=== PATIENT | female | born 1945 | race Caucasian/White ===

== ENCOUNTER 2017-05-29 10:48 | Emergency (ER) | payer OTHER, MEDICAID ==
[2017-05-29 10:54] VITALS: BP 106/57; BMI 24.5
--- NOTE | 2017-05-29 12:39 | DR.GENAD ---
HPI - PCP Primary Care Physician: ERIC - Complaint/Symptoms Chief Complaint Doctors Comments: Patient presents with c/o pain right lower chest. Denies fever. She has a hsitory of COPD, home oxygen, denies fever. Chief Complaint:: " A WEEK AGO PT HAS BEEN COUGHING AND HURTING IN HER SIDE, NOT EATING, PT WEARS O2 AT 2LITTERS - Source History Provided: Patient - Mode of Arrival Mode of Arrival: Wheelchair - Timing Onset of Chief Complaint: 05/22/17 PMH - PMH Past Medical History: Yes Past Medical History: COPD, Hypertension Past Medical History Comment: Bhupinder-FIB Past Surgical History: Yes Surgical History: Appendectomy, Cholecystectomy - Family History History of Family Medical Conditions: No - Social History Does patient currently use any type of tobacco product: Yes Have you used tobacco products in the last 12 months: Yes Type of Tobacco Use: Cigarettes How many years tobacco product used: 50 Does any household member use tobacco: No Alcohol Use: None Do you use any recreational Drugs:: No Lives With: Family Lives Where: Home - infectious screening In the last 2 months have you had wt loss of >10#?: NO Have you had fever, night sweats or hemotysis?: No Have you traveled outside the country in the last 6 months?: No Isolation: Standard ROS - Review of Systems Eyes: No Symptoms Reported ENTM: No Symptoms Reported Respiratoy: No Symptoms Reported Cardiovascular: No Symptoms Reported Gastrointestinal/Abdominal: No Symptoms Reported Genitourinary: No Symptoms Reported Neurological: No Symptoms Reported Musculoskeletal: Chest wall Integumentary: No Symptoms Reported Hematologic/Lymphatic: No Symptoms Reported Endocrine: No Symptoms Reported Psychiatric: No Symptoms Reported All Other Systems: Reviewed and Negative PE - Vital Signs Vitals: Temperature 99.1 F Pulse Rate 105 Respiratory Rate 20 Blood Pressure 106/57 O2 Sat by Pulse Oximetry 90 - General Limitations: No Limitations General Appearance: Alert, In No Apparent Distress - Head Head Exam: Normal Inspection, Atraumatic - Eyes Eye exam: Normal Appearance, PERRL, EOMI - ENT ENT Exam: Normal Exam External Ear Exam: Normal External Inspection TM/Canal Exam: Bilateral Normal Nose Exam: Normal Nose Exam Mouth Exam: Normal Inspection Throat Exam: Normal Inspection - Neck Neck Exam: Normal Inspection - Chest Chest Inspection: Normal Inspection - Respiratory Respiratory Exam: Normal Lung Sounds Bilat Respiratory Exam: Bilateral Clear to Auscultation - Cardiovascular Cardiovascular Exam: Regular Rate, Normal Rhythm - Abdominal Exam Abdominal Exam: Normal Inspection, Normal Bowel Sounds Abdominal Tenderness: negative: RUQ, RLQ, LUQ, LLQ, Epigastrium, Suprapubic, Diffuse, Mild, Moderate, Severe, Other - Extremities Extremities Exam: Normal Inspection - Back Back Exam: Normal Inspection - Neurologic Neurological Exam: Alert, Oriented X3, CN II-XII Intact - Psychiatric Psychiatric Exam: Normal Affect Course - Treatment Treatment: I discussed results of CXR of pneumonia patient refused admission ROR - Labs Reviewed Result Diagrams: 05/29/17 12:50 05/29/17 12:50 Laboratory: WBC 17.6 X10^3/uL (3.6-10.0) H 05/29/17 12:50 RBC 4.54 X10^6/uL (3.5-5.4) 05/29/17 12:50 Hgb 14.3 g/dL (12.0-16.0) 05/29/17 12:50 Hct 42.5 % (36.0-47.0) 05/29/17 12:50 MCV 93.7 fL (80.0-100.0) 05/29/17 12:50 MCH 31.5 pg (27.0-34.0) 05/29/17 12:50 MCHC 33.6 g/dL (33.0-35.0) 05/29/17 12:50 RDW 13.5 % (11.6-16.5) 05/29/17 12:50 Plt Count 227 X10^3/uL (150.0-450.0) 05/29/17 12:50 MPV 8.5 fL (7.4-11.0) 05/29/17 12:50 Neut % 81.7 % (42.0-75.0) H 05/29/17 12:50 Lymph % 9.3 % (21.0-51.0) L 05/29/17 12:50 [place] % 8.2 % (0.0-13.0) 05/29/17 12:50 Eos % 0.1 % (0.9-2.9) L 05/29/17 12:50 Baso % 0.7 % (0.2-1.0) 05/29/17 12:50 Neut # 14.4 x10^3/uL (2.2-4.8) H 05/29/17 12:50 Lymph # 1.6 X10^3/uL (1.3-2.9) 05/29/17 12:50 [place] # 1.4 x10^3/uL (0.3-0.8) H 05/29/17 12:50 Eos # 0.0 x10^3/uL (0.0-0.2) 05/29/17 12:50 Baso # 0.1 X10^3/uL (0.0-0.1) 05/29/17 12:50 Absolute Nucleated RBC 0.1 /100WBC 05/29/17 12:50 Sodium 137 mmol/L (136-145) 05/29/17 12:50 Corrected Sodium TNP 05/29/17 12:50 Potassium 3.8 mmol/L (3.5-5.1) 05/29/17 12:50 Chloride 101 mmol/L (98-107) 05/29/17 12:50 Carbon Dioxide 33.8 mmol/L (21-32) H 05/29/17 12:50 BUN 14 mg/dL (7-18) 05/29/17 12:50 Creatinine 0.60 mg/dL (0.55-1.02) 05/29/17 12:50 Est GFR (MDRD) Af Amer > 60 (>60) 05/29/17 12:50 Est GFR (MDRD) Non-Af > 60 (>60) 05/29/17 12:50 Glucose 91 mg/dL (65-99) 05/29/17 12:50 Calcium 9.0 mg/dL (8.5-10.1) 05/29/17 12:50 - XRAY XRAY Interpreted by: Radiologist (Chest CT: Examination of the mediastinum demonstrated no evidence for mediastinal masses, enlarged lymphadenopathy, or enlarged hilar adenopathy. Nonenlarged medicastinal nodes are present. No pleural effusions are identified. Those portions of the upper abdominal organs visualized were within normal limits to the limitations of an unenhanced examination. No chest wall or axillary abnormality is identified. The lungs are hyperinflated consistend with COPD. Changes of centrilobular emphysema are present diffusely. Alveolar infiltrate is present in the right lower lobe. There is also some consolidation atelectasis posteriorly in the right lower lobe. Patchy peribronchial infiltrates are present in the right middle lobe and lingula. These findigns are most consistent with multifocal neumonia and follow up until complete resolution is recommended. Follow up with CT is recommended. No nodules,masses or bronchiectasis is identified.) - Diagnosis Discharge Problem: Multifocal pneumonia COPD (chronic obstructive pulmonary disease) Qualifiers: COPD type: unspecified COPD Qualified Code(s): J44.9 - Chronic obstructive pulmonary disease, unspecified - Discharge Plan Condition: Stable - Follow ups/Referrals Follow ups/Referrals: NFD,None [Primary Care Provider] - 3 days - Instructions
[2017-05-29 12:58] LABS: BASOPHILS # (AUTO) 0.1 X10^3/uL (0.0-0.1); BASOPHILS % (AUTO) 0.7 % (0.2-1.0); EOSINOPHILS % (AUTO) 0.1 % (0.9-2.9); HEMATOCRIT 42.5 % (36.0-47.0); HEMOGLOBIN 14.3 g/dL (12.0-16.0); LYMPHOCYTES # (AUTO) 1.6 X10^3/uL (1.3-2.9); LYMPHOCYTES % (AUTO) 9.3 % (21.0-51.0); MEAN CORPUSCULAR HEMOGLOBIN 31.5 pg (27.0-34.0); MEAN CORPUSCULAR HGB CONC 33.6 g/dL (33.0-35.0); MEAN CORPUSCULAR VOLUME 93.7 fL (80.0-100.0); MEAN PLATELET VOLUME 8.5 fL (7.4-11.0); MONOCYTES # (AUTO) 1.4 x10^3/uL (0.3-0.8); MONOCYTES % (AUTO) 8.2 % (0.0-13.0); NEUTROPHILS # (AUTO) 14.4 x10^3/uL (2.2-4.8); NEUTROPHILS % (AUTO) 81.7 % (42.0-75.0); PLATELET COUNT 227 X10^3/uL (150.0-450.0); RED BLOOD COUNT 4.54 X10^6/uL (3.5-5.4); RED CELL DISTRIBUTION WIDTH 13.5 % (11.6-16.5); WHITE BLOOD COUNT 17.6 X10^3/uL (3.6-10.0)
[2017-05-29 13:03] LABS: BLOOD UREA NITROGEN 14 mg/dL (7-18); CARBON DIOXIDE 33.8 mmol/L (21-32); CHLORIDE 101 mmol/L (98-107); SODIUM 137 mmol/L (136-145); eGFR BLACK RACES > 60 (>60); eGFR NON BLACK RACES > 60 (>60)
--- NOTE | 2017-05-29 13:32 | RAD ---
HISTORY: Chest and right-sided pain Study: Two views chest Comparison: None Findings: The trachea is midline. The cardiac silhouette is unremarkable. Diffuse chronic appearing interstit ial changes are again seen within both lungs. There is flattening of the hemidiaphragms with an incre ase in retrosternal airspace. A focal somewhat ill-defined area of opacification is seen within the m id right lung and may represent infiltrate but remains indeterminate. There is questionable slight ri ght hilar prominence as well. Recommend short interval followup chest radiographs and or CT of the ch est for further evaluation and to exclude underlying nodule/mass. The aortic knob is partially calcif ied. IMPRESSION: 1. Ill-defined focal opacification within the mid right lung as discussed above. 2. Radiographic findings of COPD with diffuse chronic appearing interstitial changes. Reported By:
[2017-05-29] MEDS ORDERED: NORCO 10/325 TAB PO ONE (13:54)
[2017-05-29] MEDS ORDERED: NORCO 10/325 TAB ONE (13:57)
--- NOTE | 2017-05-29 14:38 | CT ---
HISTORY: Follow up abnormal chest x-ray Study: CT chest without contrast Comparison: Plain chest x-ray same date Technique: Axial non contrast images with coronal and sagittal reformats. Dose reduction procedures w ere used with MA/kv adjusted for body size. Findings: Examination the mediastinum demonstrated no evidence for mediastinal masses, enlarged lymphadenopathy , or enlarged hilar adenopathy. Nonenlarged mediastinal nodes are present. No pleural effusions are i dentified. Those portions of the upper abdominal organs visualized were within normal limits to the l imitations of an unenhanced examination. No chest wall or axillary abnormality is identified. The roseanne gs are hyperinflated consistent with COPD. Changes of centrilobular emphysema are present diffusely. Alveolar infiltrate is present in the right lower lobe. There is also some consolidation atelectasis posteriorly in the right lower lobe. Patchy peribronchial infiltrates are present in the right middle lobe and lingula. These findings are most consistent with multifocal pneumonia and follow up until c omplete resolution is recommended. Follow up with CT is recommended. No nodules, masses, or bronchiec tasis is identified. There is peribronchial thickening consistent with bronchitis. IMPRESSION: Emphysematous COPD Multifocal pneumonia as described above which should be followed until complete resolution. Peribronchial thickening consistent with bronchitis Reported By:
== END 2017-05-29 15:18 | disposition home or self-care (01) ==
LOC: ER 11:11
DX: J18.8 Other pneumonia, unspecified organism (principal); J44.9 Chronic obstructive pulmonary disease, unspecified
CPT/HCPCS: 36415; 71020; 71250; 80048; 85025; 99283

== ENCOUNTER → 2017-08-22 | Outpatient (CLI) | payer OTHER, MEDICAID ==
[2017-08-22 10:30] LABS: ABG BASE EXCESS 10.5 mmol/L (-2.0-2.0)
--- NOTE | 2017-08-22 15:23 | CT ---
HISTORY: Pulmonary nodule. Study: CT chest without contrast Comparison: CT chest dated May 29, 2017. Technique: Multiple axial images of the chest were obtained from the thoracic inlet to the upper abdo men after the administration of IV contrast. MIP images were obtained. Dose reduction techniques incl uding Automated Exposure Control (AEC) and adjustment of mA and kV were utilized. Findings: The mediastinum does not demonstrate significant pathological lymphadenopathy. There is no paracardi al effusion observed. The thoracic aorta is normal in its contour without evidence for aneurysmal di latation. Mild cardiomegaly and vascular calcifications of the coronary arteries and thoracic aorta a ppear unchanged. Biapical scarring. Mild/moderate centrilobular emphysematous changes. 4 mm subpleural right upper lob e pulmonary nodule (series 3, image 28) appears unchanged. No obvious new pulmonary nodule, mass, ple ural effusion, focal consolidation, or pneumothorax. Previously seen multifocal pneumonia is resolved . The upper abdominal structures appear unchanged. The osseous structures appear unchanged. No aggres sive osseous lesions. IMPRESSION: 1. No evidence of acute thoracic pathology. 2. Stable appearing right upper lobe 4 mm pulmonary nodule. Reported By:
== END ==
LOC: RAD 09:36
PROVIDERS: ATTEND Internal Medicine Pulmonary Disease
DX: J44.1 Chronic obstructive pulmonary disease with (acute) exacerbation (principal); R91.1 Solitary pulmonary nodule
CPT/HCPCS: 36600; 71250; 82803

== ENCOUNTER 2018-12-11 13:57 | Inpatient (IN) ==
[2018-12-11 14:22] LABS: ABG BASE EXCESS 7.2 mmol/L (-2.0-2.0)
[2018-12-11 14:23] LABS: ABG HCO3 34.5 mmol/L (22-26)
[2018-12-11 14:39] LABS: BASOPHILS % (AUTO) 0.2 % (0.2-1.0); EOSINOPHILS # (AUTO) 0.1 x10^3/uL (0.0-0.2); EOSINOPHILS % (AUTO) 1.1 % (0.9-2.9); HEMATOCRIT 36.5 % (36.0-47.0); HEMOGLOBIN 12.3 g/dL (12.0-16.0); LYMPHOCYTES # (AUTO) 0.4 X10^3/uL (1.3-2.9); LYMPHOCYTES % (AUTO) 4.3 % (21.0-51.0); MEAN CORPUSCULAR HEMOGLOBIN 30.5 pg (27.0-34.0); MEAN CORPUSCULAR HGB CONC 33.8 g/dL (33.0-35.0); MEAN CORPUSCULAR VOLUME 90.1 fL (80.0-100.0); MEAN PLATELET VOLUME 8.8 fL (7.4-11.0); MONOCYTES % (AUTO) 11.6 % (0.0-13.0); NEUTROPHILS # (AUTO) 7.3 x10^3/uL (2.2-4.8); NEUTROPHILS % (AUTO) 82.8 % (42.0-75.0); PLATELET COUNT 259 X10^3/uL (150.0-450.0); RED BLOOD COUNT 4.05 X10^6/uL (3.5-5.4); RED CELL DISTRIBUTION WIDTH 14.1 % (11.6-16.5); WHITE BLOOD COUNT 8.9 X10^3/uL (3.6-10.0)
[2018-12-11] MEDS ORDERED: DUONEB 0.5 MG/3 MG NEB ONE (14:46)
[2018-12-11] MEDS ORDERED: DUONEB 0.5 MG/3 MG ONE (14:47)
[2018-12-11 14:54] LABS: LACTIC ACID 0.6 mmol/L (0.4-2.0)
[2018-12-11 14:58] LABS: BLOOD UREA NITROGEN 20 mg/dL (7-18); CALCIUM 9.2 mg/dL (8.5-10.1); CARBON DIOXIDE 33.1 mmol/L (21-32); CHLORIDE 92 mmol/L (98-107); COR NA(FOR HYPERGLY) 129 mmol/L (136-145); CREATININE 0.63 mg/dL (0.55-1.02); SODIUM 129 mmol/L (136-145); TROPONIN I 0.02 ng/mL (0-1.5); eGFR NON BLACK RACES > 60 (>60)
--- NOTE | 2018-12-11 15:02 | RAD ---
History: Sepsis and cough Exam: Portable chest Comparison: 03/06/2018 Technique: A portable AP chest was obtained. Findings: The heart is mildly enlarged and more prominent. The pulmonary vessels are slightly engorged and more prominent centrally . There moderate increased interstitial markings throughout both lungs which is unchanged . There is hazy left retrocardiac opacity which is more apparent . No effusion is seen. There is a tracheostomy tube which place which is unchanged. IMPRESSION: Tracheostomy tube unchanged in position. Questionable early infiltrate or atelectasis left lower lobe . Mild cardiomegaly with mild pulmonary venous congestion or pulmonary artery hypertension which is more apparent. Diffuse underlying chronic interstitial lung disease . Reported By:
--- NOTE | 2018-12-11 15:06 | DR.SOBA ---
HPI Time Seen Time Seen by Provider: 12/11/18 14:22 Complaints Chief Complaint Doctors Comments: A 73 y/o female presenting with c/o SOB. Symptoms started earlier today. There was associated low grade fever and copious drainage from her tracheostomy Chief Complaint:: PT'S FAMILY C/O PT HAS BEEN HAVING TROUBLE BREATHING. FAMILY STATES PT HAD HAD COPIOUS AMOUNT OF MUCOUS AND SHE HAS BEEN RUNNING LOW GRADE FEVER. FAMILY STATES SHE HAS STARTED BEING LETHARGIC OVER THE PAST FEW HOURS AND HAVING TROUBLE BREATHING. Source History Provided: Family Member Mode of Arrival Mode of Arrival: Wheelchair Timing Onset of Chief Complaint: 12/11/18 PMH PMH Past Medical History: Yes Past Medical History: COPD and Hypertension Past Medical History Comment: THROAT CA Past Surgical History: Yes Surgical History: Abdominal Surgery Past Surgical History Comment: TRACH, PEG TUBE Family History History of Family Medical Conditions: Yes Family Medical History: Cancer and Coronary Artery Disease Social History Does any household member use tobacco: No Alcohol Use: None Do you use any recreational Drugs:: No Lives With: Family Lives Where: Home infectious screening In the last 2 months have you had wt loss of >10#?: NO Have you had fever, night sweats or hemotysis?: No Have you traveled outside the country in the last 6 months?: No Isolation: Standard ROS Review of Systems Constitutional: No Symptoms Reported Eyes: No Symptoms Reported Respiratoy: Short of Breath and Other (copious drainage from tracheostomy site.) Cardiovascular: No Symptoms Reported Gastrointestinal/Abdominal: No Symptoms Reported Genitourinary: No Symptoms Reported Neurological: No Symptoms Reported Musculoskeletal: No Symptoms Reported Integumentary: No Symptoms Reported Hematologic/Lymphatic: No Symptoms Reported Endocrine: No Symptoms Reported Psychiatric: No Symptoms Reported PE Vital Signs Vitals: Temperature 99.3 F Pulse Rate 121 Respiratory Rate 35 Blood Pressure [Right Arm] 124/83 Blood Pressure 160/76 O2 Sat by Pulse Oximetry 88 General Limitations: No Limitations General Appearance: Alert, Anxious and In Distress (respiratory related) Head Head Exam: Normal Inspection, Atraumatic and Normocephalic Eyes Eye exam: Normal Appearance and EOMI ENT ENT Exam: Normal Exam, Normal Oropharynx and Mucous Membranes Moist Neck Neck Exam: Trachea Midline and Other (tracheostomy site with copious clear drainage) Chest Chest Inspection: Normal Inspection and Symmetric Chest Wall Rise Respiratory Respiratory Exam: Bilateral: Wheezing and Bilateral: Rhonchi Cardiovascular Cardiovascular Exam: Tachycardia, +S1 and +S2 Abdominal Exam Abdominal Exam: Normal Inspection, Normal Bowel Sounds and Soft Extremities Extremities Exam: Normal Inspection Back Back Exam: Normal Inspection Neurologic Neurological Exam: Alert and Oriented X3 Psychiatric Psychiatric Exam: Normal Affect and Normal Mood Skin Skin Exam: Warm, Dry and Normal Color COURSE Reevaluation 1st: Improved Education/Counseling Education/Counseling: Patient, Education and Counseling Educated On: Treatment, Diagnosis, Prognosis and Needs for Follow Up ROR Labs Reviewed Laboratory Results Reviewed?: Yes Result Diagrams: 12/11/18 14:00 12/11/18 14:00 Laboratory: 12/11/18 14:15 Sputum - Expectorated Sputum - Final WBC 8.9 X10^3/uL (3.6-10.0) 12/11/18 14:00 RBC 4.05 X10^6/uL (3.5-5.4) 12/11/18 14:00 Hgb 12.3 g/dL (12.0-16.0) 12/11/18 14:00 Hct 36.5 % (36.0-47.0) 12/11/18 14:00 MCV 90.1 fL (80.0-100.0) 12/11/18 14:00 MCH 30.5 pg (27.0-34.0) 12/11/18 14:00 MCHC 33.8 g/dL (33.0-35.0) 12/11/18 14:00 RDW 14.1 % (11.6-16.5) 12/11/18 14:00 Plt Count 259 X10^3/uL (150.0-450.0) 12/11/18 14:00 MPV 8.8 fL (7.4-11.0) 12/11/18 14:00 Neut % (Auto) 82.8 % (42.0-75.0) H 12/11/18 14:00 Lymph % (Auto) 4.3 % (21.0-51.0) L 12/11/18 14:00 [place] % (Auto) 11.6 % (0.0-13.0) 12/11/18 14:00 Eos % (Auto) 1.1 % (0.9-2.9) 12/11/18 14:00 Baso % (Auto) 0.2 % (0.2-1.0) 12/11/18 14:00 Neut # (Auto) 7.3 x10^3/uL (2.2-4.8) H 12/11/18 14:00 Lymph # (Auto) 0.4 X10^3/uL (1.3-2.9) L 12/11/18 14:00 [place] # (Auto) 1.0 x10^3/uL (0.3-0.8) H 12/11/18 14:00 Eos # (Auto) 0.1 x10^3/uL (0.0-0.2) 12/11/18 14:00 Baso # (Auto) 0.0 X10^3/uL (0.0-0.1) 12/11/18 14:00 Absolute Nucleated RBC 0.0 /100WBC 12/11/18 14:00 INR Target Range - 12/11/18 14:00 INR 1.02 (0.8-1.3) 12/11/18 14:00 APTT 31.0 SECONDS (22.9-36.5) 12/11/18 14:00 PTT Comment - 12/11/18 14:00 Sample Site Right brachial 12/11/18 14:15 ABG pH 7.360 (7.35-7.45) 12/11/18 14:15 ABG pCO2 61.0 mmHg (35.0-45.0) H* 12/11/18 14:15 ABG pO2 59.0 mmHg (80.0-100.0) L 12/11/18 14:15 ABG HCO3 34.5 mmol/L (22-26) H* 12/11/18 14:15 ABG O2 Saturation 89.0 % (90-100) L 12/11/18 14:15 ABG Base Excess 7.2 mmol/L (-2.0-2.0) H 12/11/18 14:15 Asim Test Na 12/11/18 14:15 A-a Gradient 114.0 mmHg 12/11/18 14:15 FiO2 35.0 12/11/18 14:15 Blood Gas Comments Cat well aw 12/11/18 14:15 Sodium 129 mmol/L (136-145) L 12/11/18 14:00 Corrected Sodium 129 mmol/L (136-145) L 12/11/18 14:00 Potassium 5.3 mmol/L (3.5-5.1) H 12/11/18 14:00 Chloride 92 mmol/L (98-107) L 12/11/18 14:00 Carbon Dioxide 33.1 mmol/L (21-32) H 12/11/18 14:00 BUN 20 mg/dL (7-18) H 12/11/18 14:00 Creatinine 0.63 mg/dL (0.55-1.02) 12/11/18 14:00 Est GFR (MDRD) Af Amer > 60 (>60) 12/11/18 14:00 Est GFR (MDRD) Non-Af > 60 (>60) 12/11/18 14:00 Glucose 112 mg/dL (65-99) H 12/11/18 14:00 Lactic Acid 0.6 mmol/L (0.4-2.0) 12/11/18 14:00 Calcium 9.2 mg/dL (8.5-10.1) 12/11/18 14:00 Corrected Calcium 10.2 mg/dL (8.5-10.1) H 12/11/18 14:00 Phosphorus 3.9 mg/dL (2.6-4.7) 12/11/18 14:00 Magnesium 2.1 mg/dL (1.7-2.9) 12/11/18 14:00 Total Bilirubin 0.40 mg/dL (0.2-1.0) 12/11/18 14:00 AST 14 Units/L (15-37) L 12/11/18 14:00 ALT 18 Units/L (12-78) 12/11/18 14:00 Alkaline Phosphatase 72 Units/L (46-116) 12/11/18 14:00 Creatine Kinase 48 Units/L (26-192) 12/11/18 14:00 CK-MB (CK-2) 2.5 ng/mL (0-4.0) 12/11/18 14:00 CK/CKMB % Calc 5.2 % (<4) 12/11/18 14:00 Troponin I 0.02 ng/mL (0-1.5) 12/11/18 14:00 Total Protein 7.6 g/dL (6.4-8.2) 12/11/18 14:00 Albumin 2.8 g/dL (3.4-5.0) L 12/11/18 14:00 Globulin 4.8 g/dL (2.5-4.5) H 12/11/18 14:00 Albumin/Globulin Ratio 0.6 Ratio (1.1-2.1) L 12/11/18 14:00 Amylase 29 Units/L (25-115) 12/11/18 14:00 Lipase 71 Units/L (73-393) L 12/11/18 14:00 Other Results Comments: Radiologist report on CXR: Tracheostomy position unchanged. Questionable early Lt. lower lobe infiltrate or atelectasis. Diffuse underlying chronic interstitial lung disease. Diagnosis Discharge Problem: Acute hyponatremia, Hyperkalemia Pneumonia Qualifiers: Pneumonia type: due to unspecified organism Laterality: left Lung location: lower lobe of lung Qualified Code(s): J18.1 - Lobar pneumonia, unspecified organism
[2018-12-11 15:11] LABS: ALANINE AMINOTRANSFERASE 18 Units/L (12-78); ALBUMIN 2.8 g/dL (3.4-5.0); ALKALINE PHOSPHATASE 72 Units/L (46-116); AMYLASE 29 Units/L (25-115); ASPARTATE AMINO TRANSFERASE 14 Units/L (15-37); CKMB % 5.2 % (<4); COR CA(FOR HYPOALB) 10.2 mg/dL (8.5-10.1); CREATINE KINASE 48 Units/L (26-192); CREATINE KINASE MB 2.5 ng/mL (0-4.0); LIPASE 71 Units/L (73-393); MAGNESIUM 2.1 mg/dL (1.7-2.9); PHOSPHORUS 3.9 mg/dL (2.6-4.7); TOTAL PROTEIN 7.6 g/dL (6.4-8.2)
[2018-12-11] MEDS ORDERED: SOLU-Medrol 40 MG VIAL IVP ONE (16:02)
[2018-12-11] MEDS ORDERED: KAYEXALATE SUSP PO ONE (16:08)
[2018-12-11] MEDS ORDERED: REFLEX: PROVENTIL NEB & PulmiCORT NEB~ NEB SCH (16:30)
[2018-12-11] MEDS ORDERED: CONSULT PHARMACY - ANTIBIOTIC XX SCH (17:00)
[2018-12-11] MEDS ORDERED: ROCEPHIN VIAL 1 GRAM ONE (17:24)
[2018-12-11] MEDS: ROCEPHIN VIAL 1 GRAM IVP ONE (17:32)
[2018-12-11] MEDS ORDERED: PROVENTIL NEB TX 0.083% 2.5MG/ 3ML NEB SCH (18:00)
[2018-12-11] MEDS: NS 1000 ML 1,000 ML IV SCH (18:15)
[2018-12-11] MEDS: SOLU-Medrol 40 MG VIAL IVP SCH (20:25)
[2018-12-11] MEDS ORDERED: DUONEB 0.5 MG/3 MG NEB SCH (21:00)
[2018-12-11] MEDS: MUCOMYST 20% 200 MG/ML NEB SCH (21:05)
[2018-12-11] MEDS: PULMICORT NEB TX 0.5 MG NEB SCH (21:06)
[2018-12-11] MEDS ORDERED: RESTORIL CAP 15 MG PO ONE (23:44)
[2018-12-11] MEDS: RESTORIL CAP 15 MG PO PRN (23:55)
[2018-12-12] MEDS: XOPENEX 1.25 MG/3 ML NEBULE NEB SCH ×4 (05:40→17:55)
[2018-12-12] MEDS: NS 1000 ML 1,000 ML IV SCH ×3 (05:41→17:36)
[2018-12-12 06:41] LABS: ALANINE AMINOTRANSFERASE 28 Units/L (12-78); ALBUMIN 2.4 g/dL (3.4-5.0); ALKALINE PHOSPHATASE 83 Units/L (46-116); ASPARTATE AMINO TRANSFERASE 25 Units/L (15-37); BLOOD UREA NITROGEN 22 mg/dL (7-18); CARBON DIOXIDE 31.1 mmol/L (21-32); CHLORIDE 95 mmol/L (98-107); COR CA(FOR HYPOALB) 10.3 mg/dL (8.5-10.1); COR NA(FOR HYPERGLY) 133 mmol/L (136-145); CREATININE 0.56 mg/dL (0.55-1.02); SODIUM 132 mmol/L (136-145); eGFR NON BLACK RACES > 60 (>60)
[2018-12-12 08:51] VITALS: BMI 23.5
[2018-12-12] MEDS: SOLU-Medrol 40 MG VIAL IVP SCH ×2 (09:15→20:42)
[2018-12-12] MEDS: ZOSYN VIAL 3.375 GRAMS 3.375 G in NS 100 ML IV + SPIKE MINIBAG* 100 ML IV SCH ×3 (09:15→21:44)
[2018-12-12] MEDS: MUCOMYST 20% 200 MG/ML NEB SCH ×2 (12:06→18:00)
[2018-12-12] MEDS: PULMICORT NEB TX 0.5 MG NEB SCH ×2 (12:18→20:50)
[2018-12-12] MEDS: ROCEPHIN VIAL 1 GRAM IVP ONE (17:13)
[2018-12-12] MEDS: RESTORIL CAP 15 MG PO PRN (21:44)
[2018-12-13] MEDS: XOPENEX 1.25 MG/3 ML NEBULE NEB SCH ×4 (00:58→17:39)
[2018-12-13] MEDS: MUCOMYST 20% 200 MG/ML NEB SCH ×4 (00:58→17:39)
[2018-12-13] MEDS: NS 1000 ML 1,000 ML IV SCH ×6 (01:07→23:47)
[2018-12-13 05:38] LABS: BASOPHILS % (AUTO) 0.2 % (0.2-1.0); HEMATOCRIT 31.9 % (36.0-47.0); HEMOGLOBIN 10.6 g/dL (12.0-16.0); LYMPHOCYTES # (AUTO) 0.2 X10^3/uL (1.3-2.9); LYMPHOCYTES % (AUTO) 2.3 % (21.0-51.0); MEAN CORPUSCULAR HEMOGLOBIN 30.4 pg (27.0-34.0); MEAN CORPUSCULAR HGB CONC 33.2 g/dL (33.0-35.0); MEAN CORPUSCULAR VOLUME 91.4 fL (80.0-100.0); MEAN PLATELET VOLUME 8.7 fL (7.4-11.0); MONOCYTES # (AUTO) 0.4 x10^3/uL (0.3-0.8); NEUTROPHILS # (AUTO) 6.9 x10^3/uL (2.2-4.8); NEUTROPHILS % (AUTO) 92.5 % (42.0-75.0); PLATELET COUNT 249 X10^3/uL (150.0-450.0); RED BLOOD COUNT 3.49 X10^6/uL (3.5-5.4); RED CELL DISTRIBUTION WIDTH 13.8 % (11.6-16.5); WHITE BLOOD COUNT 7.5 X10^3/uL (3.6-10.0)
[2018-12-13 05:45] LABS: ALANINE AMINOTRANSFERASE 23 Units/L (12-78); ALBUMIN 2.3 g/dL (3.4-5.0); ALKALINE PHOSPHATASE 79 Units/L (46-116); ASPARTATE AMINO TRANSFERASE 18 Units/L (15-37); BLOOD UREA NITROGEN 20 mg/dL (7-18); CALCIUM 8.9 mg/dL (8.5-10.1); CARBON DIOXIDE 31.8 mmol/L (21-32); CHLORIDE 99 mmol/L (98-107); COR CA(FOR HYPOALB) 10.3 mg/dL (8.5-10.1); COR NA(FOR HYPERGLY) 137 mmol/L (136-145); CREATININE 0.74 mg/dL (0.55-1.02); SODIUM 136 mmol/L (136-145); TOTAL PROTEIN 6.5 g/dL (6.4-8.2); eGFR NON BLACK RACES > 60 (>60)
[2018-12-13] MEDS: ZOSYN VIAL 3.375 GRAMS 3.375 G in NS 100 ML IV + SPIKE MINIBAG* 100 ML IV SCH ×3 (05:45→21:20)
[2018-12-13 06:11] LABS: BAND NEUTROPHILS % 1 % (0-10); PLATELET MORPHOLOGY COMMENT NORMAL (NORMAL)
[2018-12-13] MEDS: SOLU-Medrol 40 MG VIAL IVP SCH ×2 (08:50→20:35)
[2018-12-13] MEDS: PULMICORT NEB TX 0.5 MG NEB SCH ×2 (09:33→20:30)
[2018-12-13] MEDS: TYLENOL 325 MG TAB PO PRN (10:38)
[2018-12-13] MEDS ORDERED: MAALOX or MYLANTA PO PRN (17:44)
[2018-12-13] MEDS ORDERED: MAALOX or MYLANTA ONE (17:47)
[2018-12-13] MEDS: RESTORIL CAP 15 MG PO PRN (20:36)
[2018-12-14] MEDS: XOPENEX 1.25 MG/3 ML NEBULE NEB SCH ×4 (00:12→17:23)
[2018-12-14] MEDS: MUCOMYST 20% 200 MG/ML NEB SCH ×4 (00:13→17:23)
[2018-12-14] MEDS: NS 1000 ML 1,000 ML IV SCH ×3 (05:16→19:41)
[2018-12-14] MEDS: ZOSYN VIAL 3.375 GRAMS 3.375 G in NS 100 ML IV + SPIKE MINIBAG* 100 ML IV SCH ×3 (05:16→21:11)
[2018-12-14] MEDS: TYLENOL 325 MG TAB PO PRN (05:17)
[2018-12-14 05:21] LABS: BASOPHILS % (AUTO) 0.3 % (0.2-1.0); HEMATOCRIT 34.6 % (36.0-47.0); HEMOGLOBIN 11.3 g/dL (12.0-16.0); LYMPHOCYTES # (AUTO) 0.3 X10^3/uL (1.3-2.9); LYMPHOCYTES % (AUTO) 3.1 % (21.0-51.0); MEAN CORPUSCULAR HEMOGLOBIN 30.1 pg (27.0-34.0); MEAN CORPUSCULAR HGB CONC 32.7 g/dL (33.0-35.0); MEAN CORPUSCULAR VOLUME 92.1 fL (80.0-100.0); MEAN PLATELET VOLUME 8.5 fL (7.4-11.0); MONOCYTES # (AUTO) 0.5 x10^3/uL (0.3-0.8); MONOCYTES % (AUTO) 5.7 % (0.0-13.0); NEUTROPHILS # (AUTO) 8.4 x10^3/uL (2.2-4.8); NEUTROPHILS % (AUTO) 90.9 % (42.0-75.0); PLATELET COUNT 317 X10^3/uL (150.0-450.0); RED BLOOD COUNT 3.76 X10^6/uL (3.5-5.4); RED CELL DISTRIBUTION WIDTH 14.2 % (11.6-16.5); WHITE BLOOD COUNT 9.2 X10^3/uL (3.6-10.0)
[2018-12-14 05:44] LABS: ALANINE AMINOTRANSFERASE 26 Units/L (12-78); ALBUMIN 2.5 g/dL (3.4-5.0); ALKALINE PHOSPHATASE 83 Units/L (46-116); ASPARTATE AMINO TRANSFERASE 18 Units/L (15-37); BLOOD UREA NITROGEN 19 mg/dL (7-18); CALCIUM 8.9 mg/dL (8.5-10.1); CARBON DIOXIDE 33.6 mmol/L (21-32); CHLORIDE 100 mmol/L (98-107); COR CA(FOR HYPOALB) 10.1 mg/dL (8.5-10.1); CREATININE 0.62 mg/dL (0.55-1.02); SODIUM 137 mmol/L (136-145); TOTAL PROTEIN 6.8 g/dL (6.4-8.2); eGFR NON BLACK RACES > 60 (>60)
[2018-12-14 06:00] LABS: HYPOCHROMASIA SLIGHT; PLATELET MORPHOLOGY COMMENT NORMAL (NORMAL)
[2018-12-14] MEDS: SOLU-Medrol 40 MG VIAL IVP SCH (08:00)
[2018-12-14] MEDS: PULMICORT NEB TX 0.5 MG NEB SCH ×2 (09:26→20:31)
[2018-12-14] MEDS: RESTORIL CAP 15 MG PO PRN (21:11)
[2018-12-15] MEDS: XOPENEX 1.25 MG/3 ML NEBULE NEB SCH ×4 (00:23→17:22)
[2018-12-15] MEDS: MUCOMYST 20% 200 MG/ML NEB SCH (00:23)
[2018-12-15 05:02] LABS: BASOPHILS % (AUTO) 0.4 % (0.2-1.0); EOSINOPHILS % (AUTO) 0.6 % (0.9-2.9); HEMATOCRIT 34.1 % (36.0-47.0); HEMOGLOBIN 11.3 g/dL (12.0-16.0); LYMPHOCYTES # (AUTO) 0.9 X10^3/uL (1.3-2.9); LYMPHOCYTES % (AUTO) 10.7 % (21.0-51.0); MEAN CORPUSCULAR HEMOGLOBIN 30.2 pg (27.0-34.0); MEAN CORPUSCULAR HGB CONC 33.1 g/dL (33.0-35.0); MEAN CORPUSCULAR VOLUME 91.2 fL (80.0-100.0); NEUTROPHILS # (AUTO) 6.4 x10^3/uL (2.2-4.8); NEUTROPHILS % (AUTO) 76.3 % (42.0-75.0); PLATELET COUNT 346 X10^3/uL (150.0-450.0); RED BLOOD COUNT 3.74 X10^6/uL (3.5-5.4); RED CELL DISTRIBUTION WIDTH 14.3 % (11.6-16.5); WHITE BLOOD COUNT 8.4 X10^3/uL (3.6-10.0)
[2018-12-15 05:11] LABS: ALANINE AMINOTRANSFERASE 23 Units/L (12-78); ALBUMIN 2.4 g/dL (3.4-5.0); ALKALINE PHOSPHATASE 73 Units/L (46-116); ASPARTATE AMINO TRANSFERASE 13 Units/L (15-37); BLOOD UREA NITROGEN 20 mg/dL (7-18); CALCIUM 8.7 mg/dL (8.5-10.1); CARBON DIOXIDE 33.6 mmol/L (21-32); CHLORIDE 100 mmol/L (98-107); CREATININE 0.67 mg/dL (0.55-1.02); SODIUM 136 mmol/L (136-145); TOTAL PROTEIN 6.1 g/dL (6.4-8.2); eGFR NON BLACK RACES > 60 (>60)
[2018-12-15] MEDS: NS 1000 ML 1,000 ML IV SCH ×4 (05:25→21:10)
[2018-12-15] MEDS: ZOSYN VIAL 3.375 GRAMS 3.375 G in NS 100 ML IV + SPIKE MINIBAG* 100 ML IV SCH ×3 (05:26→21:09)
[2018-12-15] MEDS: PULMICORT NEB TX 0.5 MG NEB SCH (09:01)
--- NOTE | 2018-12-15 11:46 | RAD ---
HISTORY: Left lower lobe pneumonia Study: Single-view chest Comparison: 12/11/2018 Findings: Tracheostomy tube is observed and stable in position. The cardiac silhouette is enlarged with a tortuous thoracic aorta. Chronic interstitial lung changes throughout the right and left chest are observed. Pleural-parenchymal opacity left base is noted consistent with pleural effusion and underlying infiltrate. The bony thorax is unremarkable. IMPRESSION: Pleural-parenchymal opacification of left base consistent with pleural and infiltrate. Continued follow-up will be needed. Reported By:
[2018-12-15] MEDS ORDERED: BUTT CREAM (COMPOUND) TOP PRN (11:58)
[2018-12-15] MEDS ORDERED: NS 100 ML IV 100 ML ONE (13:36)
--- NOTE | 2018-12-15 18:18 | CT ---
HISTORY: Cough congestion wheezing Study: CT chest with contrast Comparison: 03/02/2018 Technique: Multiple axial images of the chest were obtained from the thoracic inlet to the upper abdomen after the administration of IV contrast. Findings: The mediastinum does not demonstrate significant pathological lymphadenopathy. There is moderate-sized pericardial effusion observed. Coronary arterial calcifications are noted. The thoracic aorta demonstrates atherosclerosis without evidence for aneurysmal dilatation. The central pulmonary arterial system does not demonstrate central filling defects to suggest pulmonary emboli. Evaluation of the lung parenchyma demonstrates small effusions bilaterally with patchy ground-glass opacities throughout the lungs probably due to early bronchopneumonia.. No pulmonary nodule or mass can be identified. The bony thorax demonstrates mild degenerative changes. The visualized portions of the upper abdomen are grossly unremarkable. IMPRESSION: 1. Small bilateral effusions with scattered ground-glass opacities throughout both lungs probably due to early pneumonia. 2. Moderate-sized pericardial effusion. Reported By:
[2018-12-15] MEDS: RESTORIL CAP 15 MG PO PRN (21:07)
[2018-12-16] MEDS: XOPENEX 1.25 MG/3 ML NEBULE NEB SCH ×4 (01:19→17:23)
[2018-12-16] MEDS: NS 1000 ML 1,000 ML IV SCH ×2 (01:20→13:58)
[2018-12-16 05:25] LABS: BASOPHILS % (AUTO) 0.3 % (0.2-1.0); EOSINOPHILS # (AUTO) 0.4 x10^3/uL (0.0-0.2); EOSINOPHILS % (AUTO) 5.3 % (0.9-2.9); HEMATOCRIT 33.3 % (36.0-47.0); LYMPHOCYTES # (AUTO) 0.7 X10^3/uL (1.3-2.9); LYMPHOCYTES % (AUTO) 10.3 % (21.0-51.0); MEAN CORPUSCULAR HEMOGLOBIN 30.3 pg (27.0-34.0); MEAN CORPUSCULAR HGB CONC 33.1 g/dL (33.0-35.0); MEAN CORPUSCULAR VOLUME 91.4 fL (80.0-100.0); MONOCYTES # (AUTO) 0.8 x10^3/uL (0.3-0.8); MONOCYTES % (AUTO) 11.1 % (0.0-13.0); NEUTROPHILS # (AUTO) 5.2 x10^3/uL (2.2-4.8); PLATELET COUNT 353 X10^3/uL (150.0-450.0); RED BLOOD COUNT 3.64 X10^6/uL (3.5-5.4); RED CELL DISTRIBUTION WIDTH 14.3 % (11.6-16.5); WHITE BLOOD COUNT 7.2 X10^3/uL (3.6-10.0)
[2018-12-16] MEDS: ZOSYN VIAL 3.375 GRAMS 3.375 G in NS 100 ML IV + SPIKE MINIBAG* 100 ML IV SCH ×3 (05:38→21:00)
[2018-12-16 05:52] LABS: ALANINE AMINOTRANSFERASE 24 Units/L (12-78); ALBUMIN 2.2 g/dL (3.4-5.0); ALKALINE PHOSPHATASE 64 Units/L (46-116); ASPARTATE AMINO TRANSFERASE 15 Units/L (15-37); BLOOD UREA NITROGEN 13 mg/dL (7-18); CALCIUM 8.7 mg/dL (8.5-10.1); CARBON DIOXIDE 35.9 mmol/L (21-32); CHLORIDE 98 mmol/L (98-107); COR CA(FOR HYPOALB) 10.1 mg/dL (8.5-10.1); CREATININE 0.63 mg/dL (0.55-1.02); SODIUM 137 mmol/L (136-145); TOTAL PROTEIN 5.7 g/dL (6.4-8.2); eGFR NON BLACK RACES > 60 (>60)
[2018-12-16] MEDS: PULMICORT NEB TX 0.5 MG NEB SCH ×3 (09:00→21:10)
[2018-12-16] MEDS: REQUIP PO SCH ×2 (13:59→21:00)
[2018-12-16] MEDS: THEOPHYLLINE Feeding Tube SCH ×2 (13:59→21:02)
[2018-12-16] MEDS: LOPRESSOR TAB 25 MG PO SCH ×2 (18:24→23:43)
[2018-12-16] MEDS: XANAX PEG PRN (20:48)
[2018-12-16] MEDS: ROXICODONE TAB 15 MG PO PRN (20:48)
[2018-12-17] MEDS: NS 1000 ML 1,000 ML IV SCH ×4 (00:32→21:36)
[2018-12-17] MEDS: XOPENEX 1.25 MG/3 ML NEBULE NEB SCH ×4 (01:07→17:03)
[2018-12-17] MEDS: XANAX PEG PRN ×3 (04:34→17:08)
[2018-12-17] MEDS: ROXICODONE TAB 15 MG PO PRN ×3 (04:34→17:08)
[2018-12-17] MEDS: ZOSYN VIAL 3.375 GRAMS 3.375 G in NS 100 ML IV + SPIKE MINIBAG* 100 ML IV SCH ×3 (05:05→21:38)
[2018-12-17] MEDS: REQUIP PO SCH ×3 (05:06→21:38)
[2018-12-17 05:15] LABS: BASOPHILS % (AUTO) 0.3 % (0.2-1.0); EOSINOPHILS # (AUTO) 0.4 x10^3/uL (0.0-0.2); EOSINOPHILS % (AUTO) 3.1 % (0.9-2.9); HEMATOCRIT 33.3 % (36.0-47.0); LYMPHOCYTES # (AUTO) 0.7 X10^3/uL (1.3-2.9); LYMPHOCYTES % (AUTO) 4.9 % (21.0-51.0); MEAN CORPUSCULAR HEMOGLOBIN 30.2 pg (27.0-34.0); MEAN CORPUSCULAR VOLUME 91.4 fL (80.0-100.0); MONOCYTES # (AUTO) 0.9 x10^3/uL (0.3-0.8); MONOCYTES % (AUTO) 6.3 % (0.0-13.0); NEUTROPHILS # (AUTO) 11.8 x10^3/uL (2.2-4.8); NEUTROPHILS % (AUTO) 85.4 % (42.0-75.0); PLATELET COUNT 368 X10^3/uL (150.0-450.0); RED BLOOD COUNT 3.65 X10^6/uL (3.5-5.4); RED CELL DISTRIBUTION WIDTH 14.1 % (11.6-16.5); WHITE BLOOD COUNT 13.8 X10^3/uL (3.6-10.0)
[2018-12-17 05:35] LABS: ALANINE AMINOTRANSFERASE 20 Units/L (12-78); ALBUMIN 2.4 g/dL (3.4-5.0); ALKALINE PHOSPHATASE 64 Units/L (46-116); ASPARTATE AMINO TRANSFERASE 13 Units/L (15-37); BLOOD UREA NITROGEN 14 mg/dL (7-18); CALCIUM 8.7 mg/dL (8.5-10.1); CHLORIDE 97 mmol/L (98-107); CREATININE 0.58 mg/dL (0.55-1.02); SODIUM 136 mmol/L (136-145); TOTAL PROTEIN 6.1 g/dL (6.4-8.2); eGFR NON BLACK RACES > 60 (>60)
[2018-12-17] MEDS: THEOPHYLLINE Feeding Tube SCH ×3 (05:38→21:35)
[2018-12-17] MEDS: PULMICORT NEB TX 0.5 MG NEB SCH ×2 (08:23→20:03)
[2018-12-17] MEDS ORDERED: LEXAPRO ONE (08:32)
[2018-12-17] MEDS: LOPRESSOR TAB 25 MG PO SCH ×2 (08:43→21:53)
[2018-12-17] MEDS: LANOXIN PEG SCH (08:43)
[2018-12-17] MEDS: LEXAPRO PEG SCH (08:50)
[2018-12-17] MEDS: ZESTRIL TAB 10 MG PEG SCH (08:51)
[2018-12-17] MEDS: FLONASE NASAL SPRAY ENOSTRIL SCH (08:51)
[2018-12-17] MEDS: PATIENT'S HOME MEDICATION (Dexlansoprazole [Dexlansoprazole] 60 MG) Feeding Tube SCH (08:53)
[2018-12-17 09:04] LABS: ABG BASE EXCESS 10.2 mmol/L (-2.0-2.0)
[2018-12-17 09:05] LABS: ABG HCO3 37.2 mmol/L (22-26)
[2018-12-17 09:06] LABS: ABG ALLEN TEST POS
[2018-12-17] MEDS: MUCOMYST 20% 200 MG/ML NEB SCH ×2 (09:50→20:03)
[2018-12-17] MEDS ORDERED: LEVAQUIN PREMIX IV 500 MG 500 MG/100 ML BAG IV SCH (10:00)
--- NOTE | 2018-12-17 13:50 | PCM.PROG ---
Progress Note - Progress Note for Day of Date of Exam: 12/17/18 - Subjective Subjective: his is a 73-year-old white female who was an ER admission, admitted on 12/11/18, with respiratory distress secondary to acute on chronic pulmonary disease. The patient also had a left lower lobe pneumonia. This morning the patient is complaining of bilateral lower extremity pain. She states that she has restless legs. The patient also is continuing to have increased sputum production. The patients labs today showed BUN stable at 14, creatine 0.58. Her white count is 13.8. She does have a sputum positive for Pseudomonas aeruginosa and it is sensitive to her current medication regimen of Zosyn. Dr Boston consulted for trach replacement. pt had ekg with afib yesterday afternoon, we s tarted her on lopressor 25mg bid, check digoxin level today. - Past Medical Family Social History Past Med/Fam/Surg Hx: No changes since H&P Allergies: Allergies budesonide [From Symbicort] Allergy (Verified 11/01/18 16:47) celecoxib [From Celebrex] Allergy (Verified 11/01/18 16:47) formoterol [From Symbicort] Allergy (Verified 11/01/18 16:47) phenazopyridine [From Pyridium] Allergy (Verified 11/01/18 16:47) rofecoxib [From Vioxx] Allergy (Verified 11/01/18 16:47) levofloxacin [From Levaquin] Adverse Reaction (Mild, Verified 11/01/18 16:47) NAUSEA POSSIBLE DIARRHEA. - Vital Signs and I&O's Vital Signs: Temperature 98.3 F Pulse Rate [Right Radial] 88 Pulse Rate 88 Respiratory Rate 20 Blood Pressure [Left Arm] 138/65 Blood Pressure [Right Arm] 108/70 Blood Pressure 103/57 O2 Sat by Pulse Oximetry 92 Intake and Output: Intake & Output 12/15/18 12/16/18 12/17/18 12/18/18 11:59 11:59 11:59 11:59 Intake Total 1631 / 1631 1940 / 1940 2548 / 2548 Output Total 900 / 900 700 / 700 Balance 731 / 731 1240 / 1240 2548 / 2548 - Physical Exam Oriented: Normal Eyes: Normal Ear: Normal Nose: Normal Throat: Dry, Other (tracheostomy present, patent) Respiratory: Diminished, Wheezes, Rhonchi Cardiovascular: Irregular Auscultation: Bowel Sounds: Normal Palpation: Normal Tenderness: Normal Skin: Decreased Turgur Musculoskeletal: Back:Lumbar Psychiatric: Anxiety Affect: Anxious Speech Pattern: Clear, Trach(not ventilated) - Laboratory and Diagnostics Result Diagrams: 12/17/18 04:18 12/17/18 04:18 Labs: 12/11/18 14:00 Blood Blood Culture - Final 12/11/18 14:06 Blood Blood Culture - Final 12/11/18 14:15 Sputum - Expectorated Sputum Sputum Culture - Final Pseudomonas Aeruginosa 12/11/18 14:15 Sputum - Expectorated Sputum - Final Laboratory WBC 13.8 X10^3/uL (3.6-10.0) H 12/17/18 04:18 RBC 3.65 X10^6/uL (3.5-5.4) 12/17/18 04:18 Hgb 11.0 g/dL (12.0-16.0) L 12/17/18 04:18 Hct 33.3 % (36.0-47.0) L 12/17/18 04:18 MCV 91.4 fL (80.0-100.0) 12/17/18 04:18 MCH 30.2 pg (27.0-34.0) 12/17/18 04:18 MCHC 33.0 g/dL (33.0-35.0) 12/17/18 04:18 RDW 14.1 % (11.6-16.5) 12/17/18 04:18 Plt Count 368 X10^3/uL (150.0-450.0) 12/17/18 04:18 Plt Count Comment Adequate (ADEQUATE) 12/14/18 04:13 MPV 8.0 fL (7.4-11.0) 12/17/18 04:18 Neut % (Auto) 85.4 % (42.0-75.0) H 12/17/18 04:18 Lymph % (Auto) 4.9 % (21.0-51.0) L 12/17/18 04:18 [place] % (Auto) 6.3 % (0.0-13.0) 12/17/18 04:18 Eos % (Auto) 3.1 % (0.9-2.9) H 12/17/18 04:18 Baso % (Auto) 0.3 % (0.2-1.0) 12/17/18 04:18 Neut # (Auto) 11.8 x10^3/uL (2.2-4.8) H 12/17/18 04:18 Lymph # (Auto) 0.7 X10^3/uL (1.3-2.9) L 12/17/18 04:18 [place] # (Auto) 0.9 x10^3/uL (0.3-0.8) H 12/17/18 04:18 Eos # (Auto) 0.4 x10^3/uL (0.0-0.2) H 12/17/18 04:18 Baso # (Auto) 0.0 X10^3/uL (0.0-0.1) 12/17/18 04:18 Absolute Nucleated RBC 0.0 /100WBC 12/17/18 04:18 Total Counted 100 12/14/18 04:13 Neutrophils % (Manual) 91 % (39-76) H 12/14/18 04:13 Band Neutrophils % 1 % (0-10) 12/13/18 04:36 Lymphocytes % (Manual) 2 % (13-43) L 12/14/18 04:13 Monocytes % (Manual) 7 % (4-9) 12/14/18 04:13 Plt Morphology Comment Normal (NORMAL) 12/14/18 04:13 RBC Morphology Abnormal (NORMAL) A 12/14/18 04:13 Hypochromasia Slight A 12/14/18 04:13 INR Target Range - 12/11/18 14:00 INR 1.02 (0.8-1.3) 12/11/18 14:00 APTT 31.0 SECONDS (22.9-36.5) 12/11/18 14:00 PTT Comment - 12/11/18 14:00 Sample Site Rr 12/17/18 09:02 ABG pH 7.400 (7.35-7.45) 12/17/18 09:02 ABG pCO2 60.0 mmHg (35.0-45.0) H* 12/17/18 09:02 ABG pO2 55.0 mmHg (80.0-100.0) L 12/17/18 09:02 ABG HCO3 37.2 mmol/L (22-26) H* 12/17/18 09:02 ABG O2 Saturation 88.0 % (90-100) L 12/17/18 09:02 ABG Base Excess 10.2 mmol/L (-2.0-2.0) H 12/17/18 09:02 Asim Test Pos 12/17/18 09:02 A-a Gradient 120.0 mmHg 12/17/18 09:02 FiO2 35.0 12/17/18 09:02 Blood Gas Comments Pt julian well. cdn 12/17/18 09:02 Sodium 136 mmol/L (136-145) 12/17/18 04:18 Corrected Sodium TNP 12/17/18 04:18 Potassium 4.4 mmol/L (3.5-5.1) 12/17/18 04:18 Chloride 97 mmol/L (98-107) L 12/17/18 04:18 Carbon Dioxide 35.0 mmol/L (21-32) H 12/17/18 04:18 BUN 14 mg/dL (7-18) 12/17/18 04:18 Creatinine 0.58 mg/dL (0.55-1.02) 12/17/18 04:18 Est GFR (MDRD) Af Amer > 60 (>60) 12/17/18 04:18 Est GFR (MDRD) Non-Af > 60 (>60) 12/17/18 04:18 Glucose 98 mg/dL (65-99) 12/17/18 04:18 Lactic Acid 0.6 mmol/L (0.4-2.0) 12/11/18 14:00 Calcium 8.7 mg/dL (8.5-10.1) 12/17/18 04:18 Corrected Calcium 10.0 mg/dL (8.5-10.1) 12/17/18 04:18 Phosphorus 3.9 mg/dL (2.6-4.7) 12/11/18 14:00 Magnesium 2.1 mg/dL (1.7-2.9) 12/11/18 14:00 Total Bilirubin 0.20 mg/dL (0.2-1.0) 12/17/18 04:18 AST 13 Units/L (15-37) L 12/17/18 04:18 ALT 20 Units/L (12-78) 12/17/18 04:18 Alkaline Phosphatase 64 Units/L (46-116) 12/17/18 04:18 Creatine Kinase 48 Units/L (26-192) 12/11/18 14:00 CK-MB (CK-2) 2.5 ng/mL (0-4.0) 12/11/18 14:00 CK/CKMB % Calc 5.2 % (<4) 12/11/18 14:00 Troponin I 0.02 ng/mL (0-1.5) 12/11/18 14:00 Total Protein 6.1 g/dL (6.4-8.2) L 12/17/18 04:18 Albumin 2.4 g/dL (3.4-5.0) L 12/17/18 04:18 Globulin 3.7 g/dL (2.5-4.5) 12/17/18 04:18 Albumin/Globulin Ratio 0.6 Ratio (1.1-2.1) L 12/17/18 04:18 Amylase 29 Units/L (25-115) 12/11/18 14:00 Lipase 71 Units/L (73-393) L 12/11/18 14:00 Cortisol 30.6 ug/dL 12/11/18 14:00 - Plan (1) Multifocal pneumonia Status: Acute Plan: iv atbx, resp therapy. pulmonary toileting. iv hydration, ppi therapy for reflux. bp control, pain control (2) COPD (chronic obstructive pulmonary disease) Status: Acute Qualifiers: (3) Atrial fibrillation Status: Acute (4) Tracheostomy in place Status: Acute (5) Attention to G-tube Status: Acute
[2018-12-17] MEDS: ZOFRAN INJ 4 MG VIAL IVP PRN (21:52)
[2018-12-17] MEDS: TYLENOL 325 MG TAB PO PRN (21:52)
[2018-12-18] MEDS: XOPENEX 1.25 MG/3 ML NEBULE NEB SCH ×5 (00:23→17:08)
[2018-12-18] MEDS: NS 1000 ML 1,000 ML IV SCH ×3 (01:38→17:02)
[2018-12-18 05:26] LABS: BASOPHILS % (AUTO) 0.3 % (0.2-1.0); EOSINOPHILS # (AUTO) 0.4 x10^3/uL (0.0-0.2); EOSINOPHILS % (AUTO) 4.7 % (0.9-2.9); HEMATOCRIT 31.7 % (36.0-47.0); HEMOGLOBIN 10.5 g/dL (12.0-16.0); LYMPHOCYTES # (AUTO) 0.6 X10^3/uL (1.3-2.9); LYMPHOCYTES % (AUTO) 7.1 % (21.0-51.0); MEAN CORPUSCULAR HEMOGLOBIN 30.4 pg (27.0-34.0); MEAN CORPUSCULAR HGB CONC 33.1 g/dL (33.0-35.0); MEAN CORPUSCULAR VOLUME 91.8 fL (80.0-100.0); MEAN PLATELET VOLUME 7.8 fL (7.4-11.0); MONOCYTES # (AUTO) 0.7 x10^3/uL (0.3-0.8); MONOCYTES % (AUTO) 8.1 % (0.0-13.0); NEUTROPHILS # (AUTO) 6.6 x10^3/uL (2.2-4.8); NEUTROPHILS % (AUTO) 79.8 % (42.0-75.0); PLATELET COUNT 323 X10^3/uL (150.0-450.0); RED BLOOD COUNT 3.45 X10^6/uL (3.5-5.4); WHITE BLOOD COUNT 8.2 X10^3/uL (3.6-10.0)
[2018-12-18] MEDS: REQUIP PO SCH ×3 (05:26→21:26)
[2018-12-18] MEDS: XANAX PEG PRN ×2 (05:26→21:34)
[2018-12-18] MEDS: THEOPHYLLINE Feeding Tube SCH ×3 (05:26→21:22)
[2018-12-18] MEDS: ZOSYN VIAL 3.375 GRAMS 3.375 G in NS 100 ML IV + SPIKE MINIBAG* 100 ML IV SCH ×3 (05:26→21:26)
[2018-12-18] MEDS: ROXICODONE TAB 15 MG PO PRN ×3 (05:27→21:34)
[2018-12-18 05:43] LABS: ALANINE AMINOTRANSFERASE 17 Units/L (12-78); ALBUMIN 2.2 g/dL (3.4-5.0); ALKALINE PHOSPHATASE 60 Units/L (46-116); ASPARTATE AMINO TRANSFERASE 13 Units/L (15-37); BLOOD UREA NITROGEN 13 mg/dL (7-18); CALCIUM 8.6 mg/dL (8.5-10.1); CHLORIDE 100 mmol/L (98-107); CREATININE 0.48 mg/dL (0.55-1.02); SODIUM 137 mmol/L (136-145); TOTAL PROTEIN 5.9 g/dL (6.4-8.2); eGFR NON BLACK RACES > 60 (>60)
[2018-12-18] MEDS: MUCOMYST 20% 200 MG/ML NEB SCH ×3 (08:56→20:19)
[2018-12-18] MEDS: PULMICORT NEB TX 0.5 MG NEB SCH ×2 (08:57→20:19)
[2018-12-18] MEDS ORDERED: LEXAPRO ONE (11:25)
[2018-12-18] MEDS: PATIENT'S HOME MEDICATION (Dexlansoprazole [Dexlansoprazole] 60 MG) Feeding Tube SCH (11:30)
[2018-12-18] MEDS: ROBITUSSIN DM PO PRN (11:31)
[2018-12-18] MEDS: LOPRESSOR TAB 25 MG PO SCH ×2 (11:31→21:21)
[2018-12-18] MEDS: LANOXIN PEG SCH (11:34)
[2018-12-18] MEDS: ZESTRIL TAB 10 MG PEG SCH (11:37)
[2018-12-18] MEDS: LEXAPRO PEG SCH (11:37)
[2018-12-18] MEDS: FLONASE NASAL SPRAY ENOSTRIL SCH (11:46)
[2018-12-18] MEDS: ZOFRAN INJ 4 MG VIAL IVP PRN ×2 (13:23→21:45)
[2018-12-18] MEDS: TYLENOL 325 MG TAB PO PRN (13:23)
[2018-12-18] MEDS: LOVENOX INJ 40 MG SYR SC SCH (17:01)
--- NOTE | 2018-12-18 18:10 | PCM.PROG ---
Progress Note - Progress Note for Day of Date of Exam: 12/18/18 - Subjective Subjective: his is a 73-year-old white female who was an ER admission, admitted on 12/11/18, with respiratory distress secondary to acute on chronic pulmonary disease. The patient also had a left lower lobe pneumonia. This morning the patient is complaining of bilateral lower extremity pain. She does have a sputum positive for Pseudomonas aeruginosa and it is sensitive to her current medication regimen of Zosyn. Dr Boston consulted for trach replacement, in the OR today. pt had ekg with afib yesterday afternoon, we started her on lopressor 25mg bid, with rate in 90's - Past Medical Family Social History Past Med/Fam/Surg Hx: No changes since H&P Allergies: Allergies budesonide [From Symbicort] Allergy (Verified 11/01/18 16:47) celecoxib [From Celebrex] Allergy (Verified 11/01/18 16:47) formoterol [From Symbicort] Allergy (Verified 11/01/18 16:47) phenazopyridine [From Pyridium] Allergy (Verified 11/01/18 16:47) rofecoxib [From Vioxx] Allergy (Verified 11/01/18 16:47) - Vital Signs and I&O's Vital Signs: Temperature 98.8 F Pulse Rate [Right Radial] 90 Pulse Rate 88 Respiratory Rate 20 Blood Pressure [Left Arm] 116/58 Blood Pressure [Right Arm] 105/57 Blood Pressure 103/57 O2 Sat by Pulse Oximetry 94 Intake and Output: Intake & Output 12/16/18 12/17/18 12/18/18 12/19/18 11:59 11:59 11:59 11:59 Intake Total 1940 / 1940 2548 / 2548 520 / 520 240 / 240 Output Total 700 / 700 1300 / 1300 500 / 500 Balance 1240 / 1240 2548 / 2548 -780 / -780 -260 / -260 - Physical Exam Oriented: Normal Eyes: Normal Ear: Normal Nose: Normal Throat: Dry, Other (tracheostomy present, patent) Respiratory: Diminished, Wheezes, Rhonchi Cardiovascular: Irregular Auscultation: Bowel Sounds: Normal Tenderness: Normal Skin: Decreased Turgur Musculoskeletal: Back:Lumbar Psychiatric: Anxiety Affect: Anxious Speech Pattern: Clear, Appropriate - Laboratory and Diagnostics Result Diagrams: 12/18/18 04:55 04/10/19 04:55 Labs: 12/11/18 14:00 Blood Blood Culture - Final 12/11/18 14:06 Blood Blood Culture - Final 12/11/18 14:15 Sputum - Expectorated Sputum Sputum Culture - Final Pseudomonas Aeruginosa 12/11/18 14:15 Sputum - Expectorated Sputum - Final Laboratory WBC 8.2 X10^3/uL (3.6-10.0) 12/18/18 04:55 RBC 3.45 X10^6/uL (3.5-5.4) L 12/18/18 04:55 Hgb 10.5 g/dL (12.0-16.0) L 12/18/18 04:55 Hct 31.7 % (36.0-47.0) L 12/18/18 04:55 MCV 91.8 fL (80.0-100.0) 12/18/18 04:55 MCH 30.4 pg (27.0-34.0) 12/18/18 04:55 MCHC 33.1 g/dL (33.0-35.0) 12/18/18 04:55 RDW 14.0 % (11.6-16.5) 12/18/18 04:55 Plt Count 323 X10^3/uL (150.0-450.0) 12/18/18 04:55 Plt Count Comment Adequate (ADEQUATE) 12/14/18 04:13 MPV 7.8 fL (7.4-11.0) 12/18/18 04:55 Neut % (Auto) 79.8 % (42.0-75.0) H 12/18/18 04:55 Lymph % (Auto) 7.1 % (21.0-51.0) L 12/18/18 04:55 [place] % (Auto) 8.1 % (0.0-13.0) 12/18/18 04:55 Eos % (Auto) 4.7 % (0.9-2.9) H 12/18/18 04:55 Baso % (Auto) 0.3 % (0.2-1.0) 12/18/18 04:55 Neut # (Auto) 6.6 x10^3/uL (2.2-4.8) H 12/18/18 04:55 Lymph # (Auto) 0.6 X10^3/uL (1.3-2.9) L 12/18/18 04:55 [place] # (Auto) 0.7 x10^3/uL (0.3-0.8) 12/18/18 04:55 Eos # (Auto) 0.4 x10^3/uL (0.0-0.2) H 12/18/18 04:55 Baso # (Auto) 0.0 X10^3/uL (0.0-0.1) 12/18/18 04:55 Absolute Nucleated RBC 0.0 /100WBC 12/18/18 04:55 Total Counted 100 12/14/18 04:13 Neutrophils % (Manual) 91 % (39-76) H 12/14/18 04:13 Band Neutrophils % 1 % (0-10) 12/13/18 04:36 Lymphocytes % (Manual) 2 % (13-43) L 12/14/18 04:13 Monocytes % (Manual) 7 % (4-9) 12/14/18 04:13 Plt Morphology Comment Normal (NORMAL) 12/14/18 04:13 RBC Morphology Abnormal (NORMAL) A 12/14/18 04:13 Hypochromasia Slight A 12/14/18 04:13 INR Target Range - 12/11/18 14:00 INR 1.02 (0.8-1.3) 12/11/18 14:00 APTT 31.0 SECONDS (22.9-36.5) 12/11/18 14:00 PTT Comment - 12/11/18 14:00 Sample Site Rr 12/17/18 09:02 ABG pH 7.400 (7.35-7.45) 12/17/18 09:02 ABG pCO2 60.0 mmHg (35.0-45.0) H* 12/17/18 09:02 ABG pO2 55.0 mmHg (80.0-100.0) L 12/17/18 09:02 ABG HCO3 37.2 mmol/L (22-26) H* 12/17/18 09:02 ABG O2 Saturation 88.0 % (90-100) L 12/17/18 09:02 ABG Base Excess 10.2 mmol/L (-2.0-2.0) H 12/17/18 09:02 Asim Test Pos 12/17/18 09:02 A-a Gradient 120.0 mmHg 12/17/18 09:02 FiO2 35.0 12/17/18 09:02 Blood Gas Comments Pt julian well. cdn 12/17/18 09:02 Sodium 137 mmol/L (136-145) 12/18/18 04:55 Corrected Sodium TNP 12/18/18 04:55 Potassium 4.6 mmol/L (3.5-5.1) 12/18/18 04:55 Chloride 100 mmol/L (98-107) 12/18/18 04:55 Carbon Dioxide 33.0 mmol/L (21-32) H 12/18/18 04:55 BUN 13 mg/dL (7-18) 12/18/18 04:55 Creatinine 0.48 mg/dL (0.55-1.02) L 12/18/18 04:55 Est GFR (MDRD) Af Amer > 60 (>60) 12/18/18 04:55 Est GFR (MDRD) Non-Af > 60 (>60) 12/18/18 04:55 Glucose 102 mg/dL (65-99) H 12/18/18 04:55 Lactic Acid 0.6 mmol/L (0.4-2.0) 12/11/18 14:00 Calcium 8.6 mg/dL (8.5-10.1) 12/18/18 04:55 Corrected Calcium 10.0 mg/dL (8.5-10.1) 12/18/18 04:55 Phosphorus 3.9 mg/dL (2.6-4.7) 12/11/18 14:00 Magnesium 2.1 mg/dL (1.7-2.9) 12/11/18 14:00 Total Bilirubin 0.20 mg/dL (0.2-1.0) 12/18/18 04:55 AST 13 Units/L (15-37) L 12/18/18 04:55 ALT 17 Units/L (12-78) 12/18/18 04:55 Alkaline Phosphatase 60 Units/L (46-116) 12/18/18 04:55 Creatine Kinase 48 Units/L (26-192) 12/11/18 14:00 CK-MB (CK-2) 2.5 ng/mL (0-4.0) 12/11/18 14:00 CK/CKMB % Calc 5.2 % (<4) 12/11/18 14:00 Troponin I 0.02 ng/mL (0-1.5) 12/11/18 14:00 Total Protein 5.9 g/dL (6.4-8.2) L 12/18/18 04:55 Albumin 2.2 g/dL (3.4-5.0) L 12/18/18 04:55 Globulin 3.7 g/dL (2.5-4.5) 12/18/18 04:55 Albumin/Globulin Ratio 0.6 Ratio (1.1-2.1) L 12/18/18 04:55 Amylase 29 Units/L (25-115) 12/11/18 14:00 Lipase 71 Units/L (73-393) L 12/11/18 14:00 Cortisol 30.6 ug/dL 12/11/18 14:00 Digoxin 1.51 ng/mL (0.9-2) 12/17/18 04:18 - Plan (1) Multifocal pneumonia Status: Acute Plan: iv atbx, resp therapy. pulmonary toileting. iv hydration, ppi therapy for reflux. bp control, pain control (2) COPD (chronic obstructive pulmonary disease) Status: Acute Qualifiers: (3) Atrial fibrillation Status: Acute (4) Tracheostomy in place Status: Acute (5) Attention to G-tube Status: Acute
[2018-12-18] MEDS ORDERED: STERILE WATER IRRIGATION IR ONE (21:01)
[2018-12-18] MEDS ORDERED: STERILE WATER IRRIGATION ONE (21:03)
[2018-12-19] MEDS: XOPENEX 1.25 MG/3 ML NEBULE NEB SCH ×4 (01:02→17:15)
[2018-12-19] MEDS: NS 1000 ML 1,000 ML IV SCH ×3 (04:20→20:22)
[2018-12-19] MEDS: TYLENOL 325 MG TAB PO PRN (04:20)
[2018-12-19] MEDS: ZOSYN VIAL 3.375 GRAMS 3.375 G in NS 100 ML IV + SPIKE MINIBAG* 100 ML IV SCH ×3 (05:10→22:06)
[2018-12-19] MEDS: REQUIP PO SCH ×3 (05:10→22:06)
[2018-12-19] MEDS: THEOPHYLLINE Feeding Tube SCH ×3 (05:11→22:06)
[2018-12-19 05:19] LABS: BASOPHILS % (AUTO) 0.4 % (0.2-1.0); EOSINOPHILS # (AUTO) 0.4 x10^3/uL (0.0-0.2); HEMATOCRIT 31.4 % (36.0-47.0); HEMOGLOBIN 10.4 g/dL (12.0-16.0); LYMPHOCYTES # (AUTO) 0.5 X10^3/uL (1.3-2.9); LYMPHOCYTES % (AUTO) 6.1 % (21.0-51.0); MEAN CORPUSCULAR HEMOGLOBIN 30.7 pg (27.0-34.0); MEAN CORPUSCULAR HGB CONC 32.9 g/dL (33.0-35.0); MEAN CORPUSCULAR VOLUME 93.1 fL (80.0-100.0); MEAN PLATELET VOLUME 8.1 fL (7.4-11.0); MONOCYTES % (AUTO) 11.7 % (0.0-13.0); NEUTROPHILS # (AUTO) 6.8 x10^3/uL (2.2-4.8); NEUTROPHILS % (AUTO) 76.8 % (42.0-75.0); PLATELET COUNT 341 X10^3/uL (150.0-450.0); RED BLOOD COUNT 3.38 X10^6/uL (3.5-5.4); RED CELL DISTRIBUTION WIDTH 14.1 % (11.6-16.5); WHITE BLOOD COUNT 8.9 X10^3/uL (3.6-10.0)
[2018-12-19 05:59] LABS: ALANINE AMINOTRANSFERASE 17 Units/L (12-78); ALBUMIN 2.2 g/dL (3.4-5.0); ALKALINE PHOSPHATASE 65 Units/L (46-116); ASPARTATE AMINO TRANSFERASE 14 Units/L (15-37); BLOOD UREA NITROGEN 15 mg/dL (7-18); CHLORIDE 99 mmol/L (98-107); COR CA(FOR HYPOALB) 10.4 mg/dL (8.5-10.1); CREATININE 0.57 mg/dL (0.55-1.02); SODIUM 136 mmol/L (136-145); TOTAL PROTEIN 6.1 g/dL (6.4-8.2); eGFR NON BLACK RACES > 60 (>60)
[2018-12-19] MEDS ORDERED: LEXAPRO ONE (08:17)
[2018-12-19] MEDS: FLONASE NASAL SPRAY ENOSTRIL SCH (08:35)
[2018-12-19] MEDS: LOVENOX INJ 40 MG SYR SC SCH (08:36)
[2018-12-19] MEDS: ROBITUSSIN DM PO PRN (08:37)
[2018-12-19] MEDS: LOPRESSOR TAB 25 MG PO SCH ×2 (08:38→20:23)
[2018-12-19] MEDS: ROXICODONE TAB 15 MG PO PRN ×3 (08:38→20:24)
[2018-12-19] MEDS: XANAX PEG PRN ×3 (08:39→20:23)
[2018-12-19] MEDS: LEXAPRO PEG SCH (08:39)
[2018-12-19] MEDS: LANOXIN PEG SCH (08:40)
[2018-12-19] MEDS: PATIENT'S HOME MEDICATION (Dexlansoprazole [Dexlansoprazole] 60 MG) Feeding Tube SCH (08:40)
[2018-12-19] MEDS: ZESTRIL TAB 10 MG PEG SCH (08:57)
[2018-12-19] MEDS ORDERED: LASIX IVP ONE (10:12)
[2018-12-19] MEDS: MUCOMYST 20% 200 MG/ML NEB SCH ×2 (11:37→20:44)
[2018-12-19] MEDS: PULMICORT NEB TX 0.5 MG NEB SCH ×2 (11:37→20:44)
--- NOTE | 2018-12-19 13:51 | PCM.PROG ---
Progress Note - Progress Note for Day of Date of Exam: 12/19/18 - Subjective Subjective: his is a 73-year-old white female who was an ER admission, admitted on 12/11/18, with respiratory distress secondary to acute on chronic pulmonary disease. The patient also had a left lower lobe pneumonia. She does have a sputum positive for Pseudomonas aeruginosa and it is sensitive to her current medication regimen of Zosyn. Dr Boston consulted for trach replacement, performed in OR on Sunday. Hx of afib, confirmed on EKG afternoon, on lopressor 25mg bid, with rate in 80's. Pt co feels like cant air in. Pt has increased lower extremity edema, increased diminished lung bases. Lasix 40mg Iv - Past Medical Family Social History Past Med/Fam/Surg Hx: No changes since H&P Allergies: Allergies budesonide [From Symbicort] Allergy (Verified 11/01/18 16:47) celecoxib [From Celebrex] Allergy (Verified 11/01/18 16:47) formoterol [From Symbicort] Allergy (Verified 11/01/18 16:47) phenazopyridine [From Pyridium] Allergy (Verified 11/01/18 16:47) rofecoxib [From Vioxx] Allergy (Verified 11/01/18 16:47) - Vital Signs and I&O's Vital Signs: Temperature 98.2 F Pulse Rate [Right Radial] 87 Pulse Rate 87 Respiratory Rate 12 Blood Pressure [Left Arm] 118/56 Blood Pressure [Right Arm] 105/57 Blood Pressure 103/57 O2 Sat by Pulse Oximetry 88 Intake and Output: Intake & Output 12/17/18 12/18/18 12/19/18 12/20/18 11:59 11:59 11:59 11:59 Intake Total 2548 / 2548 520 / 520 790 / 790 Output Total 1300 / 1300 500 / 500 Balance 2548 / 2548 -780 / -780 290 / 290 - Physical Exam Oriented: Normal Eyes: Normal Ear: Normal Nose: Normal Throat: Dry, Other (tracheostomy present, patent) Respiratory: Diminished, Wheezes, Rhonchi Cardiovascular: Irregular Auscultation: Bowel Sounds: Normal Tenderness: Normal Skin: Decreased Turgur Musculoskeletal: Back:Lumbar Psychiatric: Anxiety Affect: Anxious Speech Pattern: Appropriate, Unclear - Laboratory and Diagnostics Result Diagrams: 12/19/18 04:46 04/11/19 04:46 Labs: 12/11/18 14:00 Blood Blood Culture - Final 12/11/18 14:06 Blood Blood Culture - Final 12/11/18 14:15 Sputum - Expectorated Sputum Sputum Culture - Final Pseudomonas Aeruginosa 12/11/18 14:15 Sputum - Expectorated Sputum - Final Laboratory WBC 8.9 X10^3/uL (3.6-10.0) 12/19/18 04:46 RBC 3.38 X10^6/uL (3.5-5.4) L 12/19/18 04:46 Hgb 10.4 g/dL (12.0-16.0) L 12/19/18 04:46 Hct 31.4 % (36.0-47.0) L 12/19/18 04:46 MCV 93.1 fL (80.0-100.0) 12/19/18 04:46 MCH 30.7 pg (27.0-34.0) 12/19/18 04:46 MCHC 32.9 g/dL (33.0-35.0) L 12/19/18 04:46 RDW 14.1 % (11.6-16.5) 12/19/18 04:46 Plt Count 341 X10^3/uL (150.0-450.0) 12/19/18 04:46 Plt Count Comment Adequate (ADEQUATE) 12/14/18 04:13 MPV 8.1 fL (7.4-11.0) 12/19/18 04:46 Neut % (Auto) 76.8 % (42.0-75.0) H 12/19/18 04:46 Lymph % (Auto) 6.1 % (21.0-51.0) L 12/19/18 04:46 [place] % (Auto) 11.7 % (0.0-13.0) 12/19/18 04:46 Eos % (Auto) 5.0 % (0.9-2.9) H 12/19/18 04:46 Baso % (Auto) 0.4 % (0.2-1.0) 12/19/18 04:46 Neut # (Auto) 6.8 x10^3/uL (2.2-4.8) H 12/19/18 04:46 Lymph # (Auto) 0.5 X10^3/uL (1.3-2.9) L 12/19/18 04:46 [place] # (Auto) 1.0 x10^3/uL (0.3-0.8) H 12/19/18 04:46 Eos # (Auto) 0.4 x10^3/uL (0.0-0.2) H 12/19/18 04:46 Baso # (Auto) 0.0 X10^3/uL (0.0-0.1) 12/19/18 04:46 Absolute Nucleated RBC 0.0 /100WBC 12/19/18 04:46 Total Counted 100 12/14/18 04:13 Neutrophils % (Manual) 91 % (39-76) H 12/14/18 04:13 Band Neutrophils % 1 % (0-10) 12/13/18 04:36 Lymphocytes % (Manual) 2 % (13-43) L 12/14/18 04:13 Monocytes % (Manual) 7 % (4-9) 12/14/18 04:13 Plt Morphology Comment Normal (NORMAL) 12/14/18 04:13 RBC Morphology Abnormal (NORMAL) A 12/14/18 04:13 Hypochromasia Slight A 12/14/18 04:13 INR Target Range - 12/11/18 14:00 INR 1.02 (0.8-1.3) 12/11/18 14:00 APTT 31.0 SECONDS (22.9-36.5) 12/11/18 14:00 PTT Comment - 12/11/18 14:00 Sample Site Rr 12/17/18 09:02 ABG pH 7.400 (7.35-7.45) 12/17/18 09:02 ABG pCO2 60.0 mmHg (35.0-45.0) H* 12/17/18 09:02 ABG pO2 55.0 mmHg (80.0-100.0) L 12/17/18 09:02 ABG HCO3 37.2 mmol/L (22-26) H* 12/17/18 09:02 ABG O2 Saturation 88.0 % (90-100) L 12/17/18 09:02 ABG Base Excess 10.2 mmol/L (-2.0-2.0) H 12/17/18 09:02 Asim Test Pos 12/17/18 09:02 A-a Gradient 120.0 mmHg 12/17/18 09:02 FiO2 35.0 12/17/18 09:02 Blood Gas Comments Pt julian well. cdn 12/17/18 09:02 Sodium 136 mmol/L (136-145) 12/19/18 04:46 Corrected Sodium TNP 12/19/18 04:46 Potassium 5.3 mmol/L (3.5-5.1) H 12/19/18 04:46 Chloride 99 mmol/L (98-107) 12/19/18 04:46 Carbon Dioxide 35.0 mmol/L (21-32) H 12/19/18 04:46 BUN 15 mg/dL (7-18) 12/19/18 04:46 Creatinine 0.57 mg/dL (0.55-1.02) 12/19/18 04:46 Est GFR (MDRD) Af Amer > 60 (>60) 12/19/18 04:46 Est GFR (MDRD) Non-Af > 60 (>60) 12/19/18 04:46 Glucose 108 mg/dL (65-99) H 12/19/18 04:46 Lactic Acid 0.6 mmol/L (0.4-2.0) 12/11/18 14:00 Calcium 9.0 mg/dL (8.5-10.1) 12/19/18 04:46 Corrected Calcium 10.4 mg/dL (8.5-10.1) H 12/19/18 04:46 Phosphorus 3.9 mg/dL (2.6-4.7) 12/11/18 14:00 Magnesium 2.1 mg/dL (1.7-2.9) 12/11/18 14:00 Total Bilirubin 0.10 mg/dL (0.2-1.0) L 12/19/18 04:46 AST 14 Units/L (15-37) L 12/19/18 04:46 ALT 17 Units/L (12-78) 12/19/18 04:46 Alkaline Phosphatase 65 Units/L (46-116) 12/19/18 04:46 Creatine Kinase 48 Units/L (26-192) 12/11/18 14:00 CK-MB (CK-2) 2.5 ng/mL (0-4.0) 12/11/18 14:00 CK/CKMB % Calc 5.2 % (<4) 12/11/18 14:00 Troponin I 0.02 ng/mL (0-1.5) 12/11/18 14:00 Total Protein 6.1 g/dL (6.4-8.2) L 12/19/18 04:46 Albumin 2.2 g/dL (3.4-5.0) L 12/19/18 04:46 Globulin 3.9 g/dL (2.5-4.5) 12/19/18 04:46 Albumin/Globulin Ratio 0.6 Ratio (1.1-2.1) L 12/19/18 04:46 Amylase 29 Units/L (25-115) 12/11/18 14:00 Lipase 71 Units/L (73-393) L 12/11/18 14:00 Cortisol 30.6 ug/dL 12/11/18 14:00 Digoxin 1.51 ng/mL (0.9-2) 12/17/18 04:18 - Plan (1) Multifocal pneumonia Status: Acute Plan: iv atbx, resp therapy. pulmonary toileting. iv hydration, ppi therapy for reflux. bp control, pain control (2) COPD (chronic obstructive pulmonary disease) Status: Acute Qualifiers: (3) Atrial fibrillation Status: Acute (4) Tracheostomy in place Status: Acute (5) Attention to G-tube Status: Acute
[2018-12-19] MEDS ORDERED: KETALAR ONE (14:07)
[2018-12-19] MEDS ORDERED: VERSED ONE (14:07)
[2018-12-19] MEDS ORDERED: XYLOCAINE 2 % (PLAIN) ONE (14:07)
[2018-12-19] MEDS ORDERED: DIPRIVAN VIAL ONE (14:07)
--- NOTE | 2018-12-19 16:23 | RAD ---
HISTORY: Wheezing. Study: AP portable chest Comparison: 12/15/2018 Findings: Slight interval increase in the left lower lobe atelectatic change/infiltrate and effusion is noted. There has been interval development of mild in the right lung base. There are findings of mild chronic interstitial scarring versus minimal interstitial edema. Moderate cardiomegaly is noted. A tracheostomy tube is present appearing to be in satisfactory position. Moderate osteopenia is present. IMPRESSION: 1. Moderate cardiomegaly. 2. Increasing atelectatic change/infiltrate diffusion on the left, now of a mild to moderate degree. Minimal is developed in the right lung base. 3. Chronic interstitial scarring versus minimal interstitial edema. Reported By:
[2018-12-19] MEDS: ZOFRAN INJ 4 MG VIAL IVP PRN (20:23)
[2018-12-20 00:38] LABS: ABG BASE EXCESS 12.3 mmol/L (-2.0-2.0)
[2018-12-20 00:40] LABS: ABG HCO3 43.7 mmol/L (22-26)
[2018-12-20 00:41] LABS: ABG ALLEN TEST POS
[2018-12-20] MEDS: XOPENEX 1.25 MG/3 ML NEBULE NEB SCH ×4 (00:51→17:43)
--- NOTE | 2018-12-20 01:46 | RAD ---
Chest AP portable Indication: Chest pain hypoxia Comparison: 12/19/2018 Findings: Tracheostomy tube projects over the chest. Chin obscures the lung apices. There is bilateral effusions with cardiomegaly and left lower lung opacity. Chronic interstitial lung disease noted Impression: Cardiomegaly, chronic interstitial change and COPD noted. Left lung infiltrate not excluded. Follow-up to exclude underlying lesion. Reported By:
[2018-12-20 02:03] LABS: ABG BASE EXCESS 13.3 mmol/L (-2.0-2.0)
[2018-12-20 02:05] LABS: ABG ALLEN TEST POS; ABG HCO3 44.4 mmol/L (22-26)
[2018-12-20] MEDS ORDERED: DIPRIVAN PREMIX 1 GRAM IV 1,000 MG/100 ML VIAL ONE (03:29)
[2018-12-20] MEDS ORDERED: DIPRIVAN PREMIX 1 GRAM IV 1,000 MG/100 ML VIAL IV PRN (03:30)
[2018-12-20] MEDS ORDERED: NS 1000 ML 1,000 ML IV SCH (04:00)
--- NOTE | 2018-12-20 04:33 | RAD ---
Chest AP portable Indication: Intubation Comparison: 12/20/2018 Findings: Tracheostomy tube projects as expected. There is cardiomegaly and COPD There is diffuse interstitial markings and patchy pulmonary opacities. Nodular density suspected in the right lower lung and left upper lung Impression: Cardiomegaly and chronic lung changes with bibasilar opacities and small nodular opacity in left upper lung and right lower lung. Developing pneumonia is favored. Follow-up to resolution. Reported By:
[2018-12-20] MEDS ORDERED: TRANSDERM-SCOP TD SCH (05:30)
[2018-12-20] MEDS ORDERED: TRANSDERM-SCOP ONE (05:32)
[2018-12-20 05:39] LABS: BASOPHILS % (AUTO) 0.3 % (0.2-1.0); EOSINOPHILS % (AUTO) 0.3 % (0.9-2.9); HEMATOCRIT 31.2 % (36.0-47.0); HEMOGLOBIN 10.2 g/dL (12.0-16.0); LYMPHOCYTES # (AUTO) 0.2 X10^3/uL (1.3-2.9); LYMPHOCYTES % (AUTO) 1.5 % (21.0-51.0); MEAN CORPUSCULAR HEMOGLOBIN 30.3 pg (27.0-34.0); MEAN CORPUSCULAR HGB CONC 32.6 g/dL (33.0-35.0); MEAN CORPUSCULAR VOLUME 92.9 fL (80.0-100.0); MEAN PLATELET VOLUME 8.4 fL (7.4-11.0); MONOCYTES # (AUTO) 0.8 x10^3/uL (0.3-0.8); MONOCYTES % (AUTO) 7.2 % (0.0-13.0); NEUTROPHILS # (AUTO) 10.4 x10^3/uL (2.2-4.8); NEUTROPHILS % (AUTO) 90.7 % (42.0-75.0); PLATELET COUNT 355 X10^3/uL (150.0-450.0); RED BLOOD COUNT 3.36 X10^6/uL (3.5-5.4); RED CELL DISTRIBUTION WIDTH 14.2 % (11.6-16.5); WHITE BLOOD COUNT 11.5 X10^3/uL (3.6-10.0)
[2018-12-20 05:50] LABS: ALANINE AMINOTRANSFERASE 17 Units/L (12-78); ALBUMIN 2.3 g/dL (3.4-5.0); ALKALINE PHOSPHATASE 64 Units/L (46-116); ASPARTATE AMINO TRANSFERASE 14 Units/L (15-37); BLOOD UREA NITROGEN 17 mg/dL (7-18); CALCIUM 9.2 mg/dL (8.5-10.1); CARBON DIOXIDE 36.4 mmol/L (21-32); CHLORIDE 96 mmol/L (98-107); COR CA(FOR HYPOALB) 10.6 mg/dL (8.5-10.1); COR NA(FOR HYPERGLY) 135 mmol/L (136-145); CREATININE 0.65 mg/dL (0.55-1.02); SODIUM 134 mmol/L (136-145); TOTAL PROTEIN 6.2 g/dL (6.4-8.2); eGFR NON BLACK RACES > 60 (>60)
[2018-12-20 05:56] LABS: ABG BASE EXCESS 14.3 mmol/L (-2.0-2.0)
[2018-12-20 05:57] LABS: ABG ALLEN TEST POS; ABG HCO3 42.6 mmol/L (22-26)
[2018-12-20 06:11] LABS: BILIRUBIN,URINE NEGATIVE (NEGATIVE); BLOOD/HEMOGLOBIN,URINE 5+ (NEGATIVE); GLUCOSE, URINE NEGATIVE (NEGATIVE); KETONES,URINE NEGATIVE (NEGATIVE); LEUKOCYTE ESTERASE ,URINE 1+ (NEGATIVE); NITRITES,URINE NEGATIVE (NEGATIVE); PROTEIN,URINE 3+ (NEGATIVE); UROBILINOGEN,URINE NORMAL (NORMAL)
[2018-12-20 06:13] LABS: APPEARANCE,URINE HAZY (CLEAR); COLOR,URINE YELLOW (YELLOW)
[2018-12-20 06:16] LABS: BACTERIA,URINE NEGATIVE /HPF (NEGATIVE); MUCUS,URINE FEW /HPF (NEGATIVE); SQUAMOUS EPITHELIAL CELL,UR NEGATIVE /HPF (NEGATIVE)
[2018-12-20 06:18] LABS: BAND NEUTROPHILS % 1 % (0-10)
[2018-12-20 06:19] LABS: PLATELET MORPHOLOGY COMMENT NORMAL (NORMAL)
[2018-12-20] MEDS: THEOPHYLLINE Feeding Tube SCH ×2 (06:40→13:52)
[2018-12-20] MEDS: ZOSYN VIAL 3.375 GRAMS 3.375 G in NS 100 ML IV + SPIKE MINIBAG* 100 ML IV SCH ×2 (06:41→13:53)
[2018-12-20] MEDS: LOVENOX INJ 40 MG SYR SC SCH (08:40)
[2018-12-20] MEDS ORDERED: LEXAPRO ONE (08:55)
[2018-12-20] MEDS ORDERED: CHECK PATCH XX SCH (09:00)
[2018-12-20] MEDS: LEXAPRO PEG SCH (09:01)
[2018-12-20] MEDS: PATIENT'S HOME MEDICATION (Dexlansoprazole [Dexlansoprazole] 60 MG) Feeding Tube SCH (09:02)
[2018-12-20] MEDS: ZESTRIL TAB 10 MG PEG SCH (09:03)
[2018-12-20] MEDS: LANOXIN PEG SCH (09:31)
[2018-12-20 10:51] LABS: ABG BASE EXCESS 16.4 mmol/L (-2.0-2.0)
[2018-12-20 10:53] LABS: ABG ALLEN TEST POS; ABG HCO3 42.9 mmol/L (22-26)
[2018-12-20] MEDS ORDERED: LASIX IVP SCH (11:00)
[2018-12-20] MEDS ORDERED: PERCOCET TAB 5/325 MG PO PRN (11:58)
[2018-12-20] MEDS: PULMICORT NEB TX 0.5 MG NEB SCH (12:16)
--- NOTE | 2018-12-20 13:26 | PCM.PROG ---
Progress Note - Progress Note for Day of Date of Exam: 12/20/18 - Subjective Subjective: his is a 73-year-old white female who was an ER admission, admitted on 12/11/18, with respiratory distress secondary to acute on chronic pulmonary disease. The patient also had a left lower lobe pneumonia. She does have a sputum positive for Pseudomonas aeruginosa and it is sensitive to her current medication regimen of Zosyn. Dr Boston consulted for trach replacement, performed in OR on Sunday. Hx of afib, confirmed on EKG afternoon, on lopressor 25mg bid. PT HAD EPISODE OF INCREASED CONFUSION LAST PM, ABG WITH CO2 102, PT WAS MOVED TO ICU, PLACED ON VENTILATOR VIA TRACH. PT WAS ON PROPOFOL DRIP WITH RESTRAINTS DURING THIS NIGHT. PT IS STABLE THIS AM, SITTING UP CALM. D/C PROPOFOL, CONTINUE TO MONITOR BP, REPEAT AM AT 5A M CO2 72. WILL REPEAT ABG AT 10AM AND RESP TO DECREASE VENT SETTINGS. PT ASKING FOR "PAIN PILL". FAMILY REFUSING FOR PT TO BE TRANSFERRED TO ANOTHER FACILITY. - Past Medical Family Social History Past Med/Fam/Surg Hx: No changes since H&P Allergies: Allergies budesonide [From Symbicort] Allergy (Verified 11/01/18 16:47) celecoxib [From Celebrex] Allergy (Verified 11/01/18 16:47) formoterol [From Symbicort] Allergy (Verified 11/01/18 16:47) phenazopyridine [From Pyridium] Allergy (Verified 11/01/18 16:47) rofecoxib [From Vioxx] Allergy (Verified 11/01/18 16:47) - Vital Signs and I&O's Vital Signs: Temperature 99.3 F Pulse Rate [Right Radial] 98 Pulse Rate 99 Respiratory Rate 16 Blood Pressure [Left Arm] 107/56 Blood Pressure [Right Arm] 160/73 Blood Pressure 103/57 O2 Sat by Pulse Oximetry 94 Intake and Output: Intake & Output 12/18/18 12/19/18 12/20/18 12/21/18 11:59 11:59 11:59 11:59 Intake Total 520 / 520 790 / 790 850 / 850 Output Total 1300 / 1300 500 / 500 4000 / 4000 Balance -780 / -780 290 / 290 -3150 / -3150 - Physical Exam Oriented: Normal Eyes: Normal Ear: Normal Nose: Normal Throat: Dry, Other (tracheostomy present, patent) Respiratory: Diminished, Wheezes, Rhonchi Cardiovascular: Irregular Auscultation: Bowel Sounds: Normal Tenderness: Normal Skin: Decreased Turgur Musculoskeletal: Back:Lumbar Psychiatric: Anxiety Affect: Anxious Speech Pattern: Artificially Ventilated - Laboratory and Diagnostics Result Diagrams: 12/20/18 04:49 12/20/18 04:49 Labs: 12/11/18 14:00 Blood Blood Culture - Final 12/11/18 14:06 Blood Blood Culture - Final 12/11/18 14:15 Sputum - Expectorated Sputum Sputum Culture - Final Pseudomonas Aeruginosa 12/11/18 14:15 Sputum - Expectorated Sputum - Final Laboratory WBC 11.5 X10^3/uL (3.6-10.0) H 12/20/18 04:49 RBC 3.36 X10^6/uL (3.5-5.4) L 12/20/18 04:49 Hgb 10.2 g/dL (12.0-16.0) L 12/20/18 04:49 Hct 31.2 % (36.0-47.0) L 12/20/18 04:49 MCV 92.9 fL (80.0-100.0) 12/20/18 04:49 MCH 30.3 pg (27.0-34.0) 12/20/18 04:49 MCHC 32.6 g/dL (33.0-35.0) L 12/20/18 04:49 RDW 14.2 % (11.6-16.5) 12/20/18 04:49 Plt Count 355 X10^3/uL (150.0-450.0) 12/20/18 04:49 Plt Count Comment Adequate (ADEQUATE) 12/20/18 04:49 MPV 8.4 fL (7.4-11.0) 12/20/18 04:49 Neut % (Auto) 90.7 % (42.0-75.0) H 12/20/18 04:49 Lymph % (Auto) 1.5 % (21.0-51.0) L 12/20/18 04:49 [place] % (Auto) 7.2 % (0.0-13.0) 12/20/18 04:49 Eos % (Auto) 0.3 % (0.9-2.9) L 12/20/18 04:49 Baso % (Auto) 0.3 % (0.2-1.0) 12/20/18 04:49 Neut # (Auto) 10.4 x10^3/uL (2.2-4.8) H 12/20/18 04:49 Lymph # (Auto) 0.2 X10^3/uL (1.3-2.9) L 12/20/18 04:49 [place] # (Auto) 0.8 x10^3/uL (0.3-0.8) 12/20/18 04:49 Eos # (Auto) 0.0 x10^3/uL (0.0-0.2) 12/20/18 04:49 Baso # (Auto) 0.0 X10^3/uL (0.0-0.1) 12/20/18 04:49 Absolute Nucleated RBC 0.0 /100WBC 12/20/18 04:49 Total Counted 100 12/20/18 04:49 Neutrophils % (Manual) 87 % (39-76) H 12/20/18 04:49 Band Neutrophils % 1 % (0-10) 12/20/18 04:49 Lymphocytes % (Manual) 4 % (13-43) L 12/20/18 04:49 Monocytes % (Manual) 8 % (4-9) 12/20/18 04:49 Plt Morphology Comment Normal (NORMAL) 12/20/18 04:49 RBC Morphology Normal (NORMAL) 12/20/18 04:49 Hypochromasia Slight A 12/14/18 04:13 INR Target Range - 12/11/18 14:00 INR 1.02 (0.8-1.3) 12/11/18 14:00 APTT 31.0 SECONDS (22.9-36.5) 12/11/18 14:00 PTT Comment - 12/11/18 14:00 Sample Site Right radial 12/20/18 10:45 ABG pH 7.470 (7.35-7.45) H 12/20/18 10:45 ABG pCO2 59.0 mmHg (35.0-45.0) H* 12/20/18 10:45 ABG pO2 142.0 mmHg (80.0-100.0) H 12/20/18 10:45 ABG HCO3 42.9 mmol/L (22-26) H* 12/20/18 10:45 ABG O2 Saturation 99.0 % (90-100) 12/20/18 10:45 ABG Base Excess 16.4 mmol/L (-2.0-2.0) H 12/20/18 10:45 Asim Test Pos 12/20/18 10:45 A-a Gradient 212.0 mmHg 12/20/18 10:45 FiO2 60.0 12/20/18 10:45 Blood Gas Comments Cat well aw 12/20/18 10:45 Sodium 134 mmol/L (136-145) L 12/20/18 04:49 Corrected Sodium 135 mmol/L (136-145) L 12/20/18 04:49 Potassium 5.1 mmol/L (3.5-5.1) 12/20/18 04:49 Chloride 96 mmol/L (98-107) L 12/20/18 04:49 Carbon Dioxide 36.4 mmol/L (21-32) H 12/20/18 04:49 BUN 17 mg/dL (7-18) 12/20/18 04:49 Creatinine 0.65 mg/dL (0.55-1.02) 12/20/18 04:49 Est GFR (MDRD) Af Amer > 60 (>60) 12/20/18 04:49 Est GFR (MDRD) Non-Af > 60 (>60) 12/20/18 04:49 Glucose 123 mg/dL (65-99) H 12/20/18 04:49 Lactic Acid 0.6 mmol/L (0.4-2.0) 12/11/18 14:00 Calcium 9.2 mg/dL (8.5-10.1) 12/20/18 04:49 Corrected Calcium 10.6 mg/dL (8.5-10.1) H 12/20/18 04:49 Phosphorus 3.9 mg/dL (2.6-4.7) 12/11/18 14:00 Magnesium 2.1 mg/dL (1.7-2.9) 12/11/18 14:00 Total Bilirubin 0.20 mg/dL (0.2-1.0) 12/20/18 04:49 AST 14 Units/L (15-37) L 12/20/18 04:49 ALT 17 Units/L (12-78) 12/20/18 04:49 Alkaline Phosphatase 64 Units/L (46-116) 12/20/18 04:49 Creatine Kinase 48 Units/L (26-192) 12/11/18 14:00 CK-MB (CK-2) 2.5 ng/mL (0-4.0) 12/11/18 14:00 CK/CKMB % Calc 5.2 % (<4) 12/11/18 14:00 Troponin I 0.02 ng/mL (0-1.5) 12/11/18 14:00 Total Protein 6.2 g/dL (6.4-8.2) L 12/20/18 04:49 Albumin 2.3 g/dL (3.4-5.0) L 12/20/18 04:49 Globulin 3.9 g/dL (2.5-4.5) 12/20/18 04:49 Albumin/Globulin Ratio 0.6 Ratio (1.1-2.1) L 12/20/18 04:49 Amylase 29 Units/L (25-115) 12/11/18 14:00 Lipase 71 Units/L (73-393) L 12/11/18 14:00 Cortisol 30.6 ug/dL 12/11/18 14:00 Specimen Type Catherized urine 12/20/18 05:40 Urine Color Yellow (YELLOW) 12/20/18 05:40 Urine Appearance Hazy (CLEAR) 12/20/18 05:40 Urine pH 5.0 (5.0 - 8.0) 12/20/18 05:40 Ur Specific [place] 1.020 (1.000-1.030) 12/20/18 05:40 Urine Protein 3+ (NEGATIVE) 12/20/18 05:40 Urine Glucose (UA) Negative (NEGATIVE) 12/20/18 05:40 Urine Ketones Negative (NEGATIVE) 12/20/18 05:40 Urine Occult Blood 5+ (NEGATIVE) 12/20/18 05:40 Urine Nitrite Negative (NEGATIVE) 12/20/18 05:40 Urine Bilirubin Negative (NEGATIVE) 12/20/18 05:40 Urine Urobilinogen Normal (NORMAL) 12/20/18 05:40 Ur Leukocyte Esterase 1+ (NEGATIVE) 12/20/18 05:40 Urine RBC 10-20 /HPF (NONE SEEN) 12/20/18 05:40 Urine WBC 0-2 /HPF (NONE SEEN) 12/20/18 05:40 Ur Squamous Epith Cells Negative /HPF (NEGATIVE) 12/20/18 05:40 Urine Bacteria Negative /HPF (NEGATIVE) 12/20/18 05:40 Urine Mucus Few /HPF (NEGATIVE) 12/20/18 05:40 Ur Culture Indicated? No/not indicated 12/20/18 05:40 Digoxin 1.38 ng/mL (0.9-2) 12/20/18 04:49 - Plan (1) Acute chronic obstructive pulmonary disease with respiratory distress Status: Acute Plan: icu, serial abg's. vent weening per respiratory. continue supplemental o2. iv lasix, duo nebs, repeat cxr. (2) Multifocal pneumonia Status: Acute Plan: iv atbx, resp therapy. pulmonary toileting. iv hydration, ppi therapy for reflux. bp control, pain control (3) COPD (chronic obstructive pulmonary disease) Status: Acute Qualifiers: (4) Atrial fibrillation Status: Acute (5) Tracheostomy in place Status: Acute (6) Attention to G-tube Status: Acute
[2018-12-20] MEDS ORDERED: REQUIP PO SCH (16:30)
[2018-12-20] MEDS ORDERED: NS 500 ML IV 500 ML IV ONE (16:42)
[2018-12-20] MEDS ORDERED: LANOXIN INJ IVP ONE (16:42)
[2018-12-20] MEDS ORDERED: NS 500 ML IV 500 ML ONE (16:52)
[2018-12-20] MEDS ORDERED: LEVAQUIN PREMIX IV 500 MG 500 MG/100 ML BAG IV SCH (17:00)
[2018-12-20 20:24] VITALS: BP 99/61
== END 2018-12-20 20:10 | disposition short-term general hospital (02) | DRG 208 ==
LOC: ER 13:57 → MED/SURG 16:27 → UNDODISIN 12-16 13:10 → ICU 12-20 03:00
PROVIDERS: ADMIT Internal Medicine; ATTEND Internal Medicine
PROC: [UNRECOGNIZED PROCEDURE] (2018-12-18 08:35)
DX: Z78.1 Physical restraint status; Z93.1 Gastrostomy status; Z85.21 Personal history of malignant neoplasm of larynx; J15.1 Pneumonia due to Pseudomonas; Z93.0 Tracheostomy status; I48.91 Unspecified atrial fibrillation; R53.1 Weakness; J96.20 Acute and chronic respiratory failure, unspecified whether with hypoxia or hypercapnia; E87.1 Hypo-osmolality and hyponatremia; J44.1 Chronic obstructive pulmonary disease with (acute) exacerbation; E87.6 Hypokalemia; I10 Essential (primary) hypertension; R26.89 Other abnormalities of gait and mobility
CPT/HCPCS: 36415; 36600; 71010; 71045; 71260; 80053; 80162; 81001; 82150; 82533; 82550; 82553; 82803; 83605; 83690; 83735; 84100; 84484; 85025; 85610; 85730; 87040; 87070; 87077; 87186; 87205; 93005; 94002; 94003; 94640; 94760; 96365; 96374; 97110; 97112; 97162; 97166; 97530; 97535; 99100; 99231; 99284; A4222; A4618; J0696; J1160; J1650; J1940; J1956; J2250; J2405; J2543; J2704; J2920; J3490; J7030; J7040; J7050; J7608; J7620; J7626